=== PATIENT | female | born 1935 | race Caucasian/White ===

== ENCOUNTER 2019-09-21 00:20 | Inpatient (IN) | payer OTHER, MEDICAID ==
[~2019-09-21] VITALS: Ht 162.6 cm; Wt 48.2 kg
[2019-09-21 02:12] LABS: BASO # 0.1 x10^3/uL (0.0-0.2); BASO % 1 % (0-3); EOS # 0.3 x10^3/uL (0.0-0.7); EOS % 2 % (0-3); HEMATOCRIT 37.6 % (36.0-47.0); HEMOGLOBIN 12.3 g/dL (12.0-15.5); LYMPH % 14 % (24-48); MEAN CORPUSCULAR HEMOGLOBIN 30 pg (25-35); MEAN CORPUSCULAR HGB CONC 33 g/dL (31-37); MEAN CORPUSCULAR VOLUME 91 fL (79-100); MONO # 0.7 x10^3/uL (0.0-1.1); MONO % 5 % (0-9); NEUT # 11.2 x10^3/uL (1.8-7.7); NEUT % 78 % (31-73); PLATELET COUNT 438 x10^3/uL (140-400); RED BLOOD COUNT 4.13 x10^6/uL (3.50-5.40); RED CELL DISTRIBUTION WIDTH 16.4 % (11.5-14.5); WHITE BLOOD COUNT 14.3 x10^3/uL (4.0-11.0)
[2019-09-21 02:29] LABS: CALCIUM 8.2 mg/dL (8.5-10.1); CREATININE 0.7 mg/dL (0.6-1.0); GFR 79.9; POTASSIUM 3.2 mmol/L (3.5-5.1)
[2019-09-21 02:35] LABS: ALBUMIN 2.4 g/dL (3.4-5.0); ALBUMIN/GLOBULIN RATIO 0.8 (1.0-1.7); TOTAL BILIRUBIN 0.4 mg/dL (0.2-1.0); TOTAL PROTEIN 5.5 g/dL (6.4-8.2)
--- NOTE | 2019-09-21 02:46 | PHYS DOC ---
Past Medical History Past Medical History: Dementia, Diabetes-Type II, Hypertension Past Surgical History: Other Additional Past Surgical Histo: unknown Smoking Status: Unknown if ever smoked Alcohol Use: None General Adult EDM: Chief Complaint: GI PROBLEM HPI: HPI: Patient is a 83 year old female who presents with complaints of her feeding tube becoming dislodged from her body. [facility] noted that she did not have a PEG tube to do her bolus feedings. Patient is able to eat and drink and take her medications by mouth but receives bolus feedings on evening basis. Patient is not a good historian but denied chest pain, abdominal pain, shortness of breath, headache or any trauma or pain to the extremities. Review of Systems: Review of Systems: Constitutional: Denies fever or chills. [] [] Respiratory: Denies cough or shortness of breath. [] Cardiovascular: Denies chest pain or edema. [] GI: Denies abdominal pain, nausea, vomiting, bloody stools or diarrhea. [] : Denies dysuria. [] Musculoskeletal: Denies back pain or joint pain. [] Integument: Denies rash. [] Neurologic: Denies headache, focal weakness or sensory changes. [] Psychiatric: Denies depression or anxiety. [] Heart Score: Risk Factors: Risk Factors: DM, Current or recent (<one month) smoker, HTN, HLP, family history of CAD, obesity. Risk Scores: Score 0 - 3: 2.5% MACE over next 6 weeks - Discharge Home Score 4 - 6: 20.3% MACE over next 6 weeks - Admit for Clinical Observation Score 7 - 10: 72.7% MACE over next 6 weeks - Early Invasive Strategies Allergies: Allergies: Allergies Coded Allergies Type Severity Reaction Last Updated Verified hydrocodone Allergy Intermediate 09/21/19 Yes metoprolol Allergy Intermediate 09/21/19 Yes tramadol Allergy Intermediate 09/21/19 Yes Physical Exam: PE: Constitutional: Well developed, well nourished, no acute distress, non-toxic appearance. [] HENT: Normocephalic, atraumatic, bilateral external ears normal, oropharynx moist, no oral exudates, nose normal. [] Eyes: PERRLA, EOMI, conjunctiva normal, no discharge. [] Neck: Normal range of motion, no tenderness, supple, no stridor. [] Cardiovascular:H regular rate and rhythm, grade 3/6 systolic murmur, no S3 or S4, no shift of PMI [] Lungs & Thorax: Bilateral breath sounds clear to auscultation, crackles at both bases [] Abdomen: Bowel sounds normal, soft, no tenderness, no masses, no pulsatile masses. A stoma is noted in the epigastrium without any tube [] Skin: Warm, dry, no erythema, no rash. [] Back: No tenderness, no CVA tenderness. [] Extremities: No tenderness, no cyanosis, no clubbing, ROM intact, no edema. [] ] Current Patient Data: Labs: Laboratory Tests Test 09/21/19 02:00 White Blood Count 14.3 x10^3/uL (4.0-11.0) H Red Blood Count 4.13 x10^6/uL (3.50-5.40) Hemoglobin 12.3 g/dL (12.0-15.5) Hematocrit 37.6 % (36.0-47.0) Mean Corpuscular Volume 91 fL (79-100) Mean Corpuscular Hemoglobin 30 pg (25-35) Mean Corpuscular Hemoglobin Concent 33 g/dL (31-37) Red Cell Distribution Width 16.4 % (11.5-14.5) H Platelet Count 438 x10^3/uL (140-400) H Neutrophils (%) (Auto) 78 % (31-73) H Lymphocytes (%) (Auto) 14 % (24-48) L Monocytes (%) (Auto) 5 % (0-9) Eosinophils (%) (Auto) 2 % (0-3) Basophils (%) (Auto) 1 % (0-3) Neutrophils # (Auto) 11.2 x10^3/uL (1.8-7.7) H Lymphocytes # (Auto) 2.0 x10^3/uL (1.0-4.8) Monocytes # (Auto) 0.7 x10^3/uL (0.0-1.1) Eosinophils # (Auto) 0.3 x10^3/uL (0.0-0.7) Basophils # (Auto) 0.1 x10^3/uL (0.0-0.2) Sodium Level 140 mmol/L (136-145) Potassium Level 3.2 mmol/L (3.5-5.1) L Chloride Level 102 mmol/L (98-107) Carbon Dioxide Level 31 mmol/L (21-32) Anion Gap 7 (6-14) Blood Urea Nitrogen 15 mg/dL (7-20) Creatinine 0.7 mg/dL (0.6-1.0) Estimated GFR (Cockcroft-Gault) 79.9 BUN/Creatinine Ratio 21 (6-20) H Glucose Level 101 mg/dL (70-99) H Calcium Level 8.2 mg/dL (8.5-10.1) L Total Bilirubin 0.4 mg/dL (0.2-1.0) Aspartate Amino Transferase (AST) 21 U/L (15-37) Alanine Aminotransferase (ALT) 16 U/L (14-59) Alkaline Phosphatase 84 U/L (46-116) Total Protein 5.5 g/dL (6.4-8.2) L Albumin 2.4 g/dL (3.4-5.0) L Albumin/Globulin Ratio 0.8 (1.0-1.7) L Laboratory Tests 09/21/19 02:00 Laboratory Tests 09/21/19 02:00 Vital Signs: Vital Signs Date Time Temp Pulse Resp B/P (MAP) Pulse Ox O2 Delivery O2 Flow Rate FiO2 09/21/19 00:20 98.1 86 18 130/86 (101) 100 Room Air 98.1 EKG: EKG: [] Radiology/Procedures: Radiology/Procedures: I attempted to place a percutaneous gastrostomy tube #20 Haitian into the ostomy site without success. I will admit the patient for further evaluation by interventional radiology. [] Course & Med Decision Making: Course & Med Decision Making Pertinent Labs and Imaging studies reviewed. (See chart for details) [] Dragon Disclaimer: Dragon Disclaimer: This electronic medical record was generated, in whole or in part, using a voice recognition dictation system. Departure Departure Impression: Primary Impression: PEG (percutaneous endoscopic gastrostomy) adjustment/replacement/removal Disposition: ADMITTED INPATIENT Condition: STABLE Referrals: RUKHSANA BUNN APRN (PCP) Justicifation of Admission Dx: Justifications for Admission: Justification of Admission Dx: Yes Comments: PEG tube malfunction MIRNA CRUZ MD Sep 21, 2019 02:46
[2019-09-21] MEDS ORDERED: IV NORMAL SALINE 1000ML BAG 1,000 ML IV SCH ×2 (02:50→08:00)
[2019-09-21 02:55] LABS: BILIRUBIN,URINE NEGATIVE (NEG); CLARITY,URINE TURBID; COLOR,URINE YELLOW; NITRITE,URINE NEGATIVE (NEG); PROTEIN,URINE NEGATIVE (NEG-TRACE)
[2019-09-21] MEDS ORDERED: ACETAMINOPHEN 325 MG TABLET. PO PRN ×2 (03:00→09:30)
[2019-09-21 03:03] LABS: RBC,URINE OCC /HPF (0-2)
[2019-09-21 03:04] LABS: AMORPHOUS SEDIMENT,UR PRESENT /HPF; BACTERIA,URINE FEW /HPF (0-FEW); SQUAMOUS EPITHELIAL CELL,UR FEW /LPF
[2019-09-21] MEDS ORDERED: ACETAMINOPHEN 325 MG TABLET. PO ONE (03:30)
[2019-09-21 04:20] VITALS: BP 136/65
[2019-09-21] MEDS ORDERED: ATOR20TA58 PO (06:31)
[2019-09-21] MEDS ORDERED: KETO15CR2 TP (06:31)
[2019-09-21] MEDS ORDERED: ASPI-630 PO (06:31)
[2019-09-21] MEDS ORDERED: ALOG25TA PO (06:31)
[2019-09-21] MEDS ORDERED: SENN1TAB99 PO (06:31)
[2019-09-21] MEDS ORDERED: DICL100G24 TP (06:31)
[2019-09-21] MEDS ORDERED: MELA3TAB4 PO (06:31)
[2019-09-21] MEDS ORDERED: DONE5TAB56 PO (06:31)
[2019-09-21] MEDS ORDERED: INSU100I13 SQ (06:31)
[2019-09-21] MEDS ORDERED: SERT50TA8 PO (06:31)
[2019-09-21] MEDS ORDERED: OXYC5CAP PO (06:31)
[2019-09-21] MEDS ORDERED: ACET325T9 PO (06:31)
[2019-09-21] MEDS ORDERED: CHOL500021 PO (06:31)
[2019-09-21] MEDS ORDERED: LATA2.5D3 EACHEYE (06:31)
[2019-09-21] MEDS ORDERED: DOXY100C2 PO (06:31)
[2019-09-21] MEDS ORDERED: INSU100V6 SQ (06:31)
[2019-09-21] MEDS ORDERED: DEXTROSE 50% 25 GM / 50ML DISP.SYRIN. IV PRN (06:45)
[2019-09-21] MEDS ORDERED: ACETAMINOPHEN 325 MG SUPP.RECT. PR PRN (06:45)
[2019-09-21] MEDS ORDERED: ONDANSETRON PF 4 MG/2 ML VIAL. IVP PRN (06:45)
[2019-09-21 07:00] VITALS: BP 111/57
[2019-09-21] MEDS: INSULIN LISPRO 300 UNITS/3 ML VIAL. SQ SCH ×3 (08:00→17:00)
--- NOTE | 2019-09-21 09:00 | NUR ---
0830 Patient bed alarmed; three staff ran to the room and patient was found on the floor. She stated she was not injured and assessment was made by myself and another staff member. Patient assisted back to bed by Beverly Fernandes. [employer] Administrator notified, Dr Christopher notified, family member notified. I did find a very small skin tear that may or may not have been new. Dressing place.
[2019-09-21] MEDS ORDERED: POTASSIUM CHLORIDE 20 MEQ TABLET.ER. PO ONE (09:30)
[2019-09-21] MEDS: POTASSIUM CL 20MEQ D5-0.45NACL 1,000 ML IV SCH (09:30)
[2019-09-21] MEDS: LINAGLIPTIN 5 MG TABLET PO SCH (10:00)
--- NOTE | 2019-09-21 10:30 | PDOC1 ---
History and Physical Date of Admission Date of Admission DATE: 09/21/19 TIME: 10:27 History of Present Illness History of Present Illness Ms Jimenez, is a 83 year old female admit for loss of feeding tube. She lives [facility] noted that she did not have a PEG tube to do her bolus feedings. she can eat and drink and take her medications by mouth but receives bolus feedings on evening basis. She is demented and speaks in colombian and is hard to follow. Family History Family History: Other (unable to determine, dementia) Social History Smoke: No Current Medications Current Medications Current Medications Acetaminophen (Tylenol) 650 mg 1X ONCE PO ; Start 09/21/19 at 03:30; Stop 09/21/19 at 03:31; Status DC Sodium Chloride 1,000 ml @ 75 mls/hr [id number] IV Last administered on 09/21/19at 02:50; Start 09/21/19 at 02:50; Stop 09/21/19 at 09:21; Status DC Acetaminophen (Tylenol) 650 mg PRN Q4HRS PRN PO FEVER > 100.3'F; Start 09/21/19 at 03:00; Stop 09/22/19 at 02:59 Sodium Chloride 1,000 ml @ 50 mls/hr Q20H IV ; Start 09/21/19 at 08:00; Stop 09/21/19 at 09:21; Status DC Insulin Human Lispro (HumaLOG) 0-5 UNITS TIDWMEALS SQ ; Start 09/21/19 at 08:00 Dextrose (Dextrose 50%-Water Syringe) 12.5 gm PRN Q15MIN PRN IV SEE COMMENTS; Start 09/21/19 at 06:45 Acetaminophen (Tylenol Supp) 325 mg PRN Q6HRS PRN [place] MILD PAIN / TEMP > 100.3'F; Start 09/21/19 at 06:45 Ondansetron HCl (Zofran) 4 mg PRN Q6HRS PRN IVP NAUSEA/VOMITING 1ST CHOICE; Start 09/21/19 at 06:45 Potassium Chloride/Dextrose/ Sod Cl 1,000 ml @ 100 mls/hr Q10H IV ; Start 09/21/19 at 09:30 Potassium Chloride (Klor-Con) 20 meq 1X ONCE PO ; Start 09/21/19 at 09:30; Stop 09/21/19 at 09:31; Status DC Acetaminophen (Tylenol) 650 mg PRN Q4HRS PRN PO PAIN; Start 09/21/19 at 09:30 Atorvastatin Calcium (Lipitor) 20 mg HS PO ; Start 09/21/19 at 21:00 Ketoconazole (Nizoral 2% Topical) 1 timmy BID TP ; Start 09/21/19 at 21:00 Latanoprost (Xalatan) 1 drop QHS OU ; Start 09/21/19 at 21:00 Senna/Docusate Sodium (Senna Plus) 1 tab DAILY PO ; Start 09/22/19 at 09:00 Sertraline HCl (Zoloft) 50 mg DAILY PO ; Start 09/22/19 at 09:00 Linagliptin (Tradjenta) 5 mg DAILY PO ; Start 09/21/19 at 10:00 Non-Formulary Medication (Melatonin ) 1 tab QHS PO ; Start 09/21/19 at 21:00; Status UNV Active Scripts Active Reported Sertraline Hcl 50 Mg Tablet 50 Mg PO DAILY Senna-Docusate Sodium Tablet (Sennosides/Docusate Sodium) 1 Each Tablet 1 Tab PO DAILY 20 Days Oxycodone Hcl 5 Mg Capsule 5 Mg PO PRN Q12HR PRN Melatonin 3 Mg Tablet 1 Tab PO QHS Latanoprost 2.5 Ml Drops 1 Drop EACHEYE QHS Lantus Solostar (Insulin Glargine,Hum.rec.anlog) 100 Unit/1 Ml Insuln.pen 5 Unit SQ QHS Ketoconazole 15 Gm Cream..g. 1 Timmy TP BID Humalog (Insulin Lispro) 100 Unit/1 Ml Vial 100 Unit SQ PRN AFTMEALHC PRN Doxycycline Hyclate 100 Mg Capsule 1 Cap PO BID Diclofenac Sodium 100 Gm Gel..gram. 100 Gm TP BID D3-50 (Cholecalciferol (Vitamin D3)) 50,000 Unit Capsule 1 Cap PO WEEKLY 28 Days Atorvastatin Calcium 20 Mg Tablet 20 Mg PO HS Aspirin 81 Mg Tab.chew 2 Tab PO DAILY Aricept (Donepezil Hcl) 5 Mg Tablet 1 Tab PO BID 30 Days Nesina (Alogliptin Benzoate) 25 Mg Tablet 1 Tab PO DAILY 30 Days Tylenol (Acetaminophen) 325 Mg Tablet 650 Mg PO PRN Q4HRS PRN Allergies Allergies: Coded Allergies: hydrocodone (Verified Allergy, Intermediate, 09/21/19) metoprolol (Verified Allergy, Intermediate, 09/21/19) tramadol (Verified Allergy, Intermediate, 09/21/19) ROS Review of System unable, demented Physical Exam General: mild distress, Other (not oriented) HEENT: Atraumatic Lungs: Clear to auscultation Heart: S1S2, other (good pulses, ) Extremities: No cyanosis Skin: No rashes Neuro: Other Psych/Mental Status: Other Vitals Vitals Vital Signs Date Time Temp Pulse Resp B/P (MAP) Pulse Ox O2 Delivery O2 Flow Rate FiO2 09/21/19 07:00 98.4 82 18 111/57 (75) 97 Room Air 98.4 Labs Labs Laboratory Tests Test 09/21/19 02:00 09/21/19 02:35 09/21/19 09:34 White Blood Count 14.3 x10^3/uL (4.0-11.0) Red Blood Count 4.13 x10^6/uL (3.50-5.40) Hemoglobin 12.3 g/dL (12.0-15.5) Hematocrit 37.6 % (36.0-47.0) Mean Corpuscular Volume 91 fL (79-100) Mean Corpuscular Hemoglobin 30 pg (25-35) Mean Corpuscular Hemoglobin Concent 33 g/dL (31-37) Red Cell Distribution Width 16.4 % (11.5-14.5) Platelet Count 438 x10^3/uL (140-400) Neutrophils (%) (Auto) 78 % (31-73) Lymphocytes (%) (Auto) 14 % (24-48) Monocytes (%) (Auto) 5 % (0-9) Eosinophils (%) (Auto) 2 % (0-3) Basophils (%) (Auto) 1 % (0-3) Neutrophils # (Auto) 11.2 x10^3/uL (1.8-7.7) Lymphocytes # (Auto) 2.0 x10^3/uL (1.0-4.8) Monocytes # (Auto) 0.7 x10^3/uL (0.0-1.1) Eosinophils # (Auto) 0.3 x10^3/uL (0.0-0.7) Basophils # (Auto) 0.1 x10^3/uL (0.0-0.2) Sodium Level 140 mmol/L (136-145) Potassium Level 3.2 mmol/L (3.5-5.1) Chloride Level 102 mmol/L (98-107) Carbon Dioxide Level 31 mmol/L (21-32) Anion Gap 7 (6-14) Blood Urea Nitrogen 15 mg/dL (7-20) Creatinine 0.7 mg/dL (0.6-1.0) Estimated GFR (Cockcroft-Gault) 79.9 BUN/Creatinine Ratio 21 (6-20) Glucose Level 101 mg/dL (70-99) Calcium Level 8.2 mg/dL (8.5-10.1) Total Bilirubin 0.4 mg/dL (0.2-1.0) Aspartate Amino Transf (AST/SGOT) 21 U/L (15-37) Alanine Aminotransferase (ALT/SGPT) 16 U/L (14-59) Alkaline Phosphatase 84 U/L (46-116) Total Protein 5.5 g/dL (6.4-8.2) Albumin 2.4 g/dL (3.4-5.0) Albumin/Globulin Ratio 0.8 (1.0-1.7) Urine Collection Type Unknown Urine Color Yellow Urine Clarity Turbid Urine pH 8.0 (<5.0-8.0) Urine Specific [place] 1.015 (1.000-1.030) Urine Protein Negative mg/dL (NEG-TRACE) Urine Glucose (UA) Negative mg/dL (NEG) Urine Ketones (Stick) Trace mg/dL (NEG) Urine Blood Negative (NEG) Urine Nitrite Negative (NEG) Urine Bilirubin Negative (NEG) Urine Urobilinogen Dipstick 1.0 mg/dL (0.2 mg/dL) Urine Leukocyte Esterase Small (NEG) Urine RBC Occ /HPF (0-2) Urine WBC 1-4 /HPF (0-4) Urine Squamous Epithelial Cells Few /LPF Urine Amorphous Sediment Present /HPF Urine Bacteria Few /HPF (0-FEW) Urine Mucus Slight /LPF Glucose (Fingerstick) 111 mg/dL (70-99) Laboratory Tests Test 09/21/19 02:00 09/21/19 02:35 09/21/19 09:34 White Blood Count 14.3 x10^3/uL (4.0-11.0) Red Blood Count 4.13 x10^6/uL (3.50-5.40) Hemoglobin 12.3 g/dL (12.0-15.5) Hematocrit 37.6 % (36.0-47.0) Mean Corpuscular Volume 91 fL (79-100) Mean Corpuscular Hemoglobin 30 pg (25-35) Mean Corpuscular Hemoglobin Concent 33 g/dL (31-37) Red Cell Distribution Width 16.4 % (11.5-14.5) Platelet Count 438 x10^3/uL (140-400) Neutrophils (%) (Auto) 78 % (31-73) Lymphocytes (%) (Auto) 14 % (24-48) Monocytes (%) (Auto) 5 % (0-9) Eosinophils (%) (Auto) 2 % (0-3) Basophils (%) (Auto) 1 % (0-3) Neutrophils # (Auto) 11.2 x10^3/uL (1.8-7.7) Lymphocytes # (Auto) 2.0 x10^3/uL (1.0-4.8) Monocytes # (Auto) 0.7 x10^3/uL (0.0-1.1) Eosinophils # (Auto) 0.3 x10^3/uL (0.0-0.7) Basophils # (Auto) 0.1 x10^3/uL (0.0-0.2) Sodium Level 140 mmol/L (136-145) Potassium Level 3.2 mmol/L (3.5-5.1) Chloride Level 102 mmol/L (98-107) Carbon Dioxide Level 31 mmol/L (21-32) Anion Gap 7 (6-14) Blood Urea Nitrogen 15 mg/dL (7-20) Creatinine 0.7 mg/dL (0.6-1.0) Estimated GFR (Cockcroft-Gault) 79.9 BUN/Creatinine Ratio 21 (6-20) Glucose Level 101 mg/dL (70-99) Calcium Level 8.2 mg/dL (8.5-10.1) Total Bilirubin 0.4 mg/dL (0.2-1.0) Aspartate Amino Transf (AST/SGOT) 21 U/L (15-37) Alanine Aminotransferase (ALT/SGPT) 16 U/L (14-59) Alkaline Phosphatase 84 U/L (46-116) Total Protein 5.5 g/dL (6.4-8.2) Albumin 2.4 g/dL (3.4-5.0) Albumin/Globulin Ratio 0.8 (1.0-1.7) Urine Collection Type Unknown Urine Color Yellow Urine Clarity Turbid Urine pH 8.0 (<5.0-8.0) Urine Specific [place] 1.015 (1.000-1.030) Urine Protein Negative mg/dL (NEG-TRACE) Urine Glucose (UA) Negative mg/dL (NEG) Urine Ketones (Stick) Trace mg/dL (NEG) Urine Blood Negative (NEG) Urine Nitrite Negative (NEG) Urine Bilirubin Negative (NEG) Urine Urobilinogen Dipstick 1.0 mg/dL (0.2 mg/dL) Urine Leukocyte Esterase Small (NEG) Urine RBC Occ /HPF (0-2) Urine WBC 1-4 /HPF (0-4) Urine Squamous Epithelial Cells Few /LPF Urine Amorphous Sediment Present /HPF Urine Bacteria Few /HPF (0-FEW) Urine Mucus Slight /LPF Glucose (Fingerstick) 111 mg/dL (70-99) VTE Prophylaxis Ordered VTE Prophylaxis Devices: No VTE Pharmacological Prophylaxi: No Assessment/Plan Assessment/Plan loss of peg tube severe malnutrition dementia, near hospice status, lives in shelter leukocytosis, NOS hypokalemia plan to replace tube then DC Justicifation of Admission Dx: Justifications for Admission: Justification of Admission Dx: Yes JÚNIOR WHALEN MD Sep 21, 2019 10:30
[2019-09-21 11:00] VITALS: BP 97/89
--- NOTE | 2019-09-21 11:55 | PDOC2 ---
CONSULT Date of Consult Date of Consult DATE: 09/21/19 TIME: 11:46 Reason for Consult Reason for Consult: PEG tube displacement History of Present Illness Reason for Visit: This is an 83-year-old female, who is transferred here from a skilled nursing with the history that her PEG tube fell out or was pulled out inadvertently. We have not seen her before but the history is she had a significant severe illness like pneumonia for example requiring gastrostomy tube placement for nutritional support and medications. I called the family to review this. It sounds like she was at [facility] although I do not have those records. She apparently began to improve and was able to start taking some nutrition orally during the day but it was not apparently sufficient and so she was getting some bolus feedings at night as well. The patient is unable to tell us why the gastrostomy tube fell out but it had been out long enough that when she arrived here at the hospital a replacement tube was not able to be placed at the bedside . She was admitted for fluids and observation. Past Medical History Cardiovascular: HTN, Hyperlipidemia Pulmonary: Pneumonia CENTRAL NERVOUS SYSTEM: Dementia Psych: Anxiety Endocrine: Diabetes Past Surgical History Past Surgical History: Other (PEG) Family History Family History: Other (unable to determine, dementia) Social History No Current Medications Current Medications Current Medications Acetaminophen (Tylenol) 650 mg 1X ONCE PO ; Start 09/21/19 at 03:30; Stop 09/21/19 at 03:31; Status DC Sodium Chloride 1,000 ml @ 75 mls/hr [id number] IV Last administered on 09/21/19at 02:50; Start 09/21/19 at 02:50; Stop 09/21/19 at 09:21; Status DC Acetaminophen (Tylenol) 650 mg PRN Q4HRS PRN PO FEVER > 100.3'F; Start 09/21/19 at 03:00; Stop 09/22/19 at 02:59 Sodium Chloride 1,000 ml @ 50 mls/hr Q20H IV ; Start 09/21/19 at 08:00; Stop 09/21/19 at 09:21; Status DC Insulin Human Lispro (HumaLOG) 0-5 UNITS TIDWMEALS SQ ; Start 09/21/19 at 08:00 Dextrose (Dextrose 50%-Water Syringe) 12.5 gm PRN Q15MIN PRN IV SEE COMMENTS; Start 09/21/19 at 06:45 Acetaminophen (Tylenol Supp) 325 mg PRN Q6HRS PRN MS MILD PAIN / TEMP > 100.3'F; Start 09/21/19 at 06:45 Ondansetron HCl (Zofran) 4 mg PRN Q6HRS PRN IVP NAUSEA/VOMITING 1ST CHOICE; Start 09/21/19 at 06:45 Potassium Chloride/Dextrose/ Sod Cl 1,000 ml @ 100 mls/hr Q10H IV ; Start 09/21/19 at 09:30 Potassium Chloride (Klor-Con) 20 meq 1X ONCE PO ; Start 09/21/19 at 09:30; Stop 09/21/19 at 09:31; Status DC Acetaminophen (Tylenol) 650 mg PRN Q4HRS PRN PO PAIN; Start 09/21/19 at 09:30 Atorvastatin Calcium (Lipitor) 20 mg HS PO ; Start 09/21/19 at 21:00 Ketoconazole (Nizoral 2% Topical) 1 timmy BID TP ; Start 09/21/19 at 21:00 Latanoprost (Xalatan) 1 drop QHS OU ; Start 09/21/19 at 21:00 Senna/Docusate Sodium (Senna Plus) 1 tab DAILY PO ; Start 09/22/19 at 09:00 Sertraline HCl (Zoloft) 50 mg DAILY PO ; Start 09/22/19 at 09:00 Linagliptin (Tradjenta) 5 mg DAILY PO ; Start 09/21/19 at 10:00 Non-Formulary Medication (Melatonin ) 1 tab QHS PO ; Start 09/21/19 at 21:00; Status UNV Active Scripts Active Reported Sertraline Hcl 50 Mg Tablet 50 Mg PO DAILY Senna-Docusate Sodium Tablet (Sennosides/Docusate Sodium) 1 Each Tablet 1 Tab PO DAILY 20 Days Oxycodone Hcl 5 Mg Capsule 5 Mg PO PRN Q12HR PRN Melatonin 3 Mg Tablet 1 Tab PO QHS Latanoprost 2.5 Ml Drops 1 Drop EACHEYE QHS Lantus Solostar (Insulin Glargine,Hum.rec.anlog) 100 Unit/1 Ml Insuln.pen 5 Unit SQ QHS Ketoconazole 15 Gm Cream..g. 1 Timmy TP BID Humalog (Insulin Lispro) 100 Unit/1 Ml Vial 100 Unit SQ PRN AFTMEALHC PRN Doxycycline Hyclate 100 Mg Capsule 1 Cap PO BID Diclofenac Sodium 100 Gm Gel..gram. 100 Gm TP BID D3-50 (Cholecalciferol (Vitamin D3)) 50,000 Unit Capsule 1 Cap PO WEEKLY 28 Days Atorvastatin Calcium 20 Mg Tablet 20 Mg PO HS Aspirin 81 Mg Tab.chew 2 Tab PO DAILY Aricept (Donepezil Hcl) 5 Mg Tablet 1 Tab PO BID 30 Days Nesina (Alogliptin Benzoate) 25 Mg Tablet 1 Tab PO DAILY 30 Days Tylenol (Acetaminophen) 325 Mg Tablet 650 Mg PO PRN Q4HRS PRN Allergies Allergies: Coded Allergies: hydrocodone (Verified Allergy, Intermediate, 09/21/19) metoprolol (Verified Allergy, Intermediate, 09/21/19) tramadol (Verified Allergy, Intermediate, 09/21/19) Physical Exam General: Cooperative, Other (Confused) HEENT: Atraumatic, PERRLA Lungs: Clear to auscultation Heart: Regular rate, Normal S1, Normal S2 Abdomen: Normal bowel sounds, Soft, No tenderness, No hepatosplenomegaly, Other (Closed PEG site in the mid abdomen) Neuro: Normal speech Psych/Mental Status: Other (Confused, likely dementia) Vitals VITALS Vital Signs Date Time Temp Pulse Resp B/P (MAP) Pulse Ox O2 Delivery O2 Flow Rate FiO2 09/21/19 11:00 97.5 74 18 97/89 (92) 99 Room Air 97.5 Labs Labs Laboratory Tests Test 09/21/19 02:00 09/21/19 02:35 09/21/19 09:34 09/21/19 11:37 White Blood Count 14.3 x10^3/uL (4.0-11.0) Red Blood Count 4.13 x10^6/uL (3.50-5.40) Hemoglobin 12.3 g/dL (12.0-15.5) Hematocrit 37.6 % (36.0-47.0) Mean Corpuscular Volume 91 fL (79-100) Mean Corpuscular Hemoglobin 30 pg (25-35) Mean Corpuscular Hemoglobin Concent 33 g/dL (31-37) Red Cell Distribution Width 16.4 % (11.5-14.5) Platelet Count 438 x10^3/uL (140-400) Neutrophils (%) (Auto) 78 % (31-73) Lymphocytes (%) (Auto) 14 % (24-48) Monocytes (%) (Auto) 5 % (0-9) Eosinophils (%) (Auto) 2 % (0-3) Basophils (%) (Auto) 1 % (0-3) Neutrophils # (Auto) 11.2 x10^3/uL (1.8-7.7) Lymphocytes # (Auto) 2.0 x10^3/uL (1.0-4.8) Monocytes # (Auto) 0.7 x10^3/uL (0.0-1.1) Eosinophils # (Auto) 0.3 x10^3/uL (0.0-0.7) Basophils # (Auto) 0.1 x10^3/uL (0.0-0.2) Sodium Level 140 mmol/L (136-145) Potassium Level 3.2 mmol/L (3.5-5.1) Chloride Level 102 mmol/L (98-107) Carbon Dioxide Level 31 mmol/L (21-32) Anion Gap 7 (6-14) Blood Urea Nitrogen 15 mg/dL (7-20) Creatinine 0.7 mg/dL (0.6-1.0) Estimated GFR (Cockcroft-Gault) 79.9 BUN/Creatinine Ratio 21 (6-20) Glucose Level 101 mg/dL (70-99) Calcium Level 8.2 mg/dL (8.5-10.1) Total Bilirubin 0.4 mg/dL (0.2-1.0) Aspartate Amino Transf (AST/SGOT) 21 U/L (15-37) Alanine Aminotransferase (ALT/SGPT) 16 U/L (14-59) Alkaline Phosphatase 84 U/L (46-116) Total Protein 5.5 g/dL (6.4-8.2) Albumin 2.4 g/dL (3.4-5.0) Albumin/Globulin Ratio 0.8 (1.0-1.7) Urine Collection Type Unknown Urine Color Yellow Urine Clarity Turbid Urine pH 8.0 (<5.0-8.0) Urine Specific [place] 1.015 (1.000-1.030) Urine Protein Negative mg/dL (NEG-TRACE) Urine Glucose (UA) Negative mg/dL (NEG) Urine Ketones (Stick) Trace mg/dL (NEG) Urine Blood Negative (NEG) Urine Nitrite Negative (NEG) Urine Bilirubin Negative (NEG) Urine Urobilinogen Dipstick 1.0 mg/dL (0.2 mg/dL) Urine Leukocyte Esterase Small (NEG) Urine RBC Occ /HPF (0-2) Urine WBC 1-4 /HPF (0-4) Urine Squamous Epithelial Cells Few /LPF Urine Amorphous Sediment Present /HPF Urine Bacteria Few /HPF (0-FEW) Urine Mucus Slight /LPF Glucose (Fingerstick) 111 mg/dL (70-99) 106 mg/dL (70-99) Laboratory Tests Test 09/21/19 02:00 09/21/19 02:35 09/21/19 09:34 09/21/19 11:37 White Blood Count 14.3 x10^3/uL (4.0-11.0) Red Blood Count 4.13 x10^6/uL (3.50-5.40) Hemoglobin 12.3 g/dL (12.0-15.5) Hematocrit 37.6 % (36.0-47.0) Mean Corpuscular Volume 91 fL (79-100) Mean Corpuscular Hemoglobin 30 pg (25-35) Mean Corpuscular Hemoglobin Concent 33 g/dL (31-37) Red Cell Distribution Width 16.4 % (11.5-14.5) Platelet Count 438 x10^3/uL (140-400) Neutrophils (%) (Auto) 78 % (31-73) Lymphocytes (%) (Auto) 14 % (24-48) Monocytes (%) (Auto) 5 % (0-9) Eosinophils (%) (Auto) 2 % (0-3) Basophils (%) (Auto) 1 % (0-3) Neutrophils # (Auto) 11.2 x10^3/uL (1.8-7.7) Lymphocytes # (Auto) 2.0 x10^3/uL (1.0-4.8) Monocytes # (Auto) 0.7 x10^3/uL (0.0-1.1) Eosinophils # (Auto) 0.3 x10^3/uL (0.0-0.7) Basophils # (Auto) 0.1 x10^3/uL (0.0-0.2) Sodium Level 140 mmol/L (136-145) Potassium Level 3.2 mmol/L (3.5-5.1) Chloride Level 102 mmol/L (98-107) Carbon Dioxide Level 31 mmol/L (21-32) Anion Gap 7 (6-14) Blood Urea Nitrogen 15 mg/dL (7-20) Creatinine 0.7 mg/dL (0.6-1.0) Estimated GFR (Cockcroft-Gault) 79.9 BUN/Creatinine Ratio 21 (6-20) Glucose Level 101 mg/dL (70-99) Calcium Level 8.2 mg/dL (8.5-10.1) Total Bilirubin 0.4 mg/dL (0.2-1.0) Aspartate Amino Transf (AST/SGOT) 21 U/L (15-37) Alanine Aminotransferase (ALT/SGPT) 16 U/L (14-59) Alkaline Phosphatase 84 U/L (46-116) Total Protein 5.5 g/dL (6.4-8.2) Albumin 2.4 g/dL (3.4-5.0) Albumin/Globulin Ratio 0.8 (1.0-1.7) Urine Collection Type Unknown Urine Color Yellow Urine Clarity Turbid Urine pH 8.0 (<5.0-8.0) Urine Specific [place] 1.015 (1.000-1.030) Urine Protein Negative mg/dL (NEG-TRACE) Urine Glucose (UA) Negative mg/dL (NEG) Urine Ketones (Stick) Trace mg/dL (NEG) Urine Blood Negative (NEG) Urine Nitrite Negative (NEG) Urine Bilirubin Negative (NEG) Urine Urobilinogen Dipstick 1.0 mg/dL (0.2 mg/dL) Urine Leukocyte Esterase Small (NEG) Urine RBC Occ /HPF (0-2) Urine WBC 1-4 /HPF (0-4) Urine Squamous Epithelial Cells Few /LPF Urine Amorphous Sediment Present /HPF Urine Bacteria Few /HPF (0-FEW) Urine Mucus Slight /LPF Glucose (Fingerstick) 111 mg/dL (70-99) 106 mg/dL (70-99) Assessment/Plan Assessment/Plan Displacement of PEG tube. The circumstances of this are unclear. More importantly she is only using the PEG tube for bolus feeding at night. It was p laced before with an acute illness. I am not sure the details but it sounds like a pneumonia. However she is improved over the her recovery. The question now is since the tube is been displaced will she be able to tolerate p.o. intake for nutrition and medications alone or will she need a replacement gastrostomy tube I called and discussed this issue with her family. They have limited knowledge of what happened to her but did state that she was doing better when she had support of her p.o. intake by nursing assistants. Plan: We will try to obtain additional records if we can We will have speech pathology see her tomorrow and assess whether she continues to have any oropharyngeal dysphasia We will observe her intake of meds and diet while here and then review all of this and make a decision about replacing the PEG tube or proceeding without DEVANG ARCHIBALD MD Sep 21, 2019 11:54
[2019-09-21 15:00] VITALS: BP_SYST 144; BP_SYST 97; BP_DIAS 79; BP_DIAS 89
[2019-09-21] MEDS: MORPHINE SULFATE 2 MG/ML VIAL. IV PRN (15:27)
[2019-09-21 19:00] VITALS: BP 148/76
[2019-09-21] MEDS ORDERED: NON FORMULARY ITEM (Melatonin 1 TAB) PO SCH (21:00)
[2019-09-21] MEDS: ATORVASTATIN CALCIUM 20 MG TABLET PO SCH (21:00)
[2019-09-21] MEDS: LATANOPROST 0.005% OPHTH SOLUTION 2.5ML BOTTLE. OU SCH (21:00)
[2019-09-21] MEDS: KETOCONAZOLE 2% TOPICAL CREAM 15GM TUBE. TP SCH (21:00)
[2019-09-21 23:00] VITALS: BP 136/68
[2019-09-22] MEDS: POTASSIUM CL 20MEQ D5-0.45NACL 1,000 ML IV SCH ×3 (03:10→14:51)
--- NOTE | 2019-09-22 07:41 | NUR ---
Patient is refusing to have fluids ordered. Will continue to monitor.
[2019-09-22] MEDS: INSULIN LISPRO 300 UNITS/3 ML VIAL. SQ SCH ×3 (08:00→16:55)
[2019-09-22] MEDS: SERTRALINE 50 MG TABLET. PO SCH ×2 (09:00→09:27)
[2019-09-22] MEDS: SENNOSIDES/DOCUSATE 8.6/50MG TABLET. PO SCH ×2 (09:00→09:27)
[2019-09-22] MEDS: LINAGLIPTIN 5 MG TABLET PO SCH ×2 (09:00→09:27)
[2019-09-22] MEDS: KETOCONAZOLE 2% TOPICAL CREAM 15GM TUBE. TP SCH ×3 (09:00→21:00)
--- NOTE | 2019-09-22 09:52 | NUR ---
SW following. 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 SW had consult for possible hospice. Dr. Melchor will reach out to family today to discuss. Pt combative and confused. SW will continue to follow.
--- NOTE | 2019-09-22 10:48 | PDOC ---
Date of Service: DATE: 09/22/19 TIME: 10:44 Subjective: Subjective: No meaningful information from her. Objective: Objective: D/w nurse - has been agitated, communication difficult - trying to get up, got Ativan. Vital Signs: Vital Signs Date Time Temp Pulse Resp B/P (MAP) Pulse Ox O2 Delivery O2 Flow Rate FiO2 09/22/19 03:20 20 09/21/19 23:00 98.9 75 95 Room Air 98.9 Labs: Laboratory Tests Test 09/21/19 11:37 09/21/19 16:54 Glucose (Fingerstick) 106 mg/dL 93 mg/dL URINE CULTURE Final Final No Growth on 09/22/19 at 0915 PE: GEN: NAD, in recliner LUNGS: poor effort, diminished HEART: RRR ABD: non-tender, old PEG site in upper abdomen NEURO/PSYCH: awake, difficult to understand A/P: PEG displacement -- Agitation/language barrier issues today. Await [employer] eval. Justicifation of Admission Dx: Justifications for Admission: Justification of Admission Dx: Yes ARTUR CALDERON Sep 22, 2019 10:48
[2019-09-22 11:00] VITALS: BP 109/45
--- NOTE | 2019-09-22 11:26 | NUR ---
Patient is combative and refused ENRIQUE/Bud Addendum: 09/22/19 at 1127 by STEVEN CAAL RN RN Amended: Links added.
--- NOTE | 2019-09-22 11:45 | NUR ---
Wound Care Wound Type/Assessment: see wound assessment. patient assessed with [facility], see her progress note. 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 patient also has a skin tear to the right arm, the wound was cleaned measured, pictured and redressed. Treatment Recommendations/Plan: Recommendations of packing the sacrum wound with Aquacel Ag with a foam dressing, change every other day. patients right arm- Xeroform gauze with a foam dressing, change every 3-4 days. Offloading surface/device: patient transferred to a P500 bed at this time. ordered a wedge to assist with turning every 2 hours, patient turned to the right side at this time. Recommended Referrals/Tests: LETITIA [facility] to order an MRI for the sacrum wound. Patient assessed from head to toe and no other wounds noted at this time. Notified RUPINDER Rae about the POC. wound care will continue to f/u for changes.
[2019-09-22 15:00] VITALS: BP 110/48
--- NOTE | 2019-09-22 15:36 | PDOC2 ---
CONSULT Date of Consult Date of Consult DATE: 09/22/19 TIME: 12:20 Reason for Consult Reason for Consult: Stage 4 sacral wound Referring Physician Referring Physician: Dr. hylton Source Source: Chart review History of Present Illness Reason for Visit: Patient admitted to [facility] for a dislodged PEG tube. Prior to admission patient had been admitted to [facility] and had only been at the facility for 3 to 4 days. Prior to admission at [facility] patient was at [facility] for custodial services. Sacral wound was noted upon admission to [facility] and documented at its a stage IV. Past Medical History Cardiovascular: HTN, Hyperlipidemia Pulmonary: Pneumonia CENTRAL NERVOUS SYSTEM: Dementia Psych: Anxiety Endocrine: Diabetes Past Surgical History Past Surgical History: Other Family History Family History: Other (unable to determine, dementia) Social History No ALCOHOL: none Current Medications Current Medications Current Medications Acetaminophen (Tylenol) 650 mg 1X ONCE PO ; Start 09/21/19 at 03:30; Stop 09/21/19 at 03:31; Status DC Sodium Chloride 1,000 ml @ 75 mls/hr [id number] IV Last administered on 09/21/19at 02:50; Start 09/21/19 at 02:50; Stop 09/21/19 at 09:21; Status DC Acetaminophen (Tylenol) 650 mg PRN Q4HRS PRN PO FEVER > 100.3'F; Start 09/21/19 at 03:00; Stop 09/22/19 at 02:59; Status DC Sodium Chloride 1,000 ml @ 50 mls/hr Q20H IV ; Start 09/21/19 at 08:00; Stop 09/21/19 at 09:21; Status DC Insulin Human Lispro (HumaLOG) 0-5 UNITS TIDWMEALS SQ ; Start 09/21/19 at 08:00 Dextrose (Dextrose 50%-Water Syringe) 12.5 gm PRN Q15MIN PRN IV SEE COMMENTS; Start 09/21/19 at 06:45 Acetaminophen (Tylenol Supp) 325 mg PRN Q6HRS PRN ID MILD PAIN / TEMP > 100.3'F; Start 09/21/19 at 06:45 Ondansetron HCl (Zofran) 4 mg PRN Q6HRS PRN IVP NAUSEA/VOMITING 1ST CHOICE; Start 09/21/19 at 06:45 Potassium Chloride/Dextrose/ Sod Cl 1,000 ml @ 100 mls/hr Q10H IV Last administered on 09/22/19at 03:10; Start 09/21/19 at 09:30 Potassium Chloride (Klor-Con) 20 meq 1X ONCE PO ; Start 09/21/19 at 09:30; Stop 09/21/19 at 09:31; Status DC Acetaminophen (Tylenol) 650 mg PRN Q4HRS PRN PO PAIN; Start 09/21/19 at 09:30 Atorvastatin Calcium (Lipitor) 20 mg HS PO ; Start 09/21/19 at 21:00 Ketoconazole (Nizoral 2% Topical) 1 timmy BID TP ; Start 09/21/19 at 21:00 Latanoprost (Xalatan) 1 drop QHS OU ; Start 09/21/19 at 21:00 Senna/Docusate Sodium (Senna Plus) 1 tab DAILY PO ; Start 09/22/19 at 09:00 Sertraline HCl (Zoloft) 50 mg DAILY PO ; Start 09/22/19 at 09:00 Linagliptin (Tradjenta) 5 mg DAILY PO ; Start 09/21/19 at 10:00 Non-Formulary Medication (Melatonin ) 1 tab QHS PO ; Start 09/21/19 at 21:00; Status UNV Lorazepam (Ativan Inj) 1 mg 1X ONCE IVP Last administered on 09/21/19at 15:31; Start 09/21/19 at 15:00; Stop 09/21/19 at 15:01; Status DC Morphine Sulfate (Morphine Sulfate) 2 mg PRN Q2HR PRN IV PAIN Last administered on 09/21/19at 15:27; Start 09/21/19 at 15:00 Lorazepam (Ativan Inj) 2 mg 1X ONCE IVP Last administered on 09/22/19at 09:28; Start 09/22/19 at 09:00; Stop 09/22/19 at 09:01; Status DC Active Scripts Active Reported Sertraline Hcl 50 Mg Tablet 50 Mg PO DAILY Senna-Docusate Sodium Tablet (Sennosides/Docusate Sodium) 1 Each Tablet 1 Tab PO DAILY 20 Days Oxycodone Hcl 5 Mg Capsule 5 Mg PO PRN Q12HR PRN Melatonin 3 Mg Tablet 1 Tab PO QHS Latanoprost 2.5 Ml Drops 1 Drop EACHEYE QHS Lantus Solostar (Insulin Glargine,Hum.rec.anlog) 100 Unit/1 Ml Insuln.pen 5 Unit SQ QHS Ketoconazole 15 Gm Cream..g. 1 Timmy TP BID Humalog (Insulin Lispro) 100 Unit/1 Ml Vial 100 Unit SQ PRN AFTMEALHC PRN Doxycycline Hyclate 100 Mg Capsule 1 Cap PO BID Diclofenac Sodium 100 Gm Gel..gram. 100 Gm TP BID D3-50 (Cholecalciferol (Vitamin D3)) 50,000 Unit Capsule 1 Cap PO WEEKLY 28 Days Atorvastatin Calcium 20 Mg Tablet 20 Mg PO HS Aspirin 81 Mg Tab.chew 2 Tab PO DAILY Aricept (Donepezil Hcl) 5 Mg Tablet 1 Tab PO BID 30 Days Nesina (Alogliptin Benzoate) 25 Mg Tablet 1 Tab PO DAILY 30 Days Tylenol (Acetaminophen) 325 Mg Tablet 650 Mg PO PRN Q4HRS PRN Allergies Allergies: Coded Allergies: hydrocodone (Verified Allergy, Intermediate, 09/21/19) metoprolol (Verified Allergy, Intermediate, 09/21/19) tramadol (Verified Allergy, Intermediate, 09/21/19) ROS General: No: Chills, Fatigue, Appetite PSYCHOLOGICAL ROS: No: Anxiety, Depression Respiratory: No: Cough, Shortness of breath Cardiovascular: No Chest Pain Gastrointestinal: No Nausea, No Vomiting, No Diarrhea Neurological: No Behavorial Changes Physical Exam General: Alert, Cooperative, No acute distress Abdomen: Soft, No tenderness Extremities: No clubbing, No cyanosis, No edema Skin: No rashes, Other (Sacral region with a 3.4 x 4.3 x 2 cm open ulceration. There is undermining with a max of 3.8 that goes from 8:00 to 3:00. Wound bed is 20% slough, 80% granulation. There is bone palpable with minimal overlying slough centrally. There is no surrounding erythema or edema. There is moderate serosanguineous drainage and no odor following cleansing.) Vitals VITALS Vital Signs Date Time Temp Pulse Resp B/P (MAP) Pulse Ox O2 Delivery O2 Flow Rate FiO2 09/22/19 11:00 73 16 109/45 (66) 96 Room Air 09/21/19 23:00 98.9 98.9 Labs Labs Laboratory Tests Test 09/21/19 02:00 09/21/19 02:35 09/21/19 09:34 09/21/19 11:37 White Blood Count 14.3 x10^3/uL (4.0-11.0) Red Blood Count 4.13 x10^6/uL (3.50-5.40) Hemoglobin 12.3 g/dL (12.0-15.5) Hematocrit 37.6 % (36.0-47.0) Mean Corpuscular Volume 91 fL (79-100) Mean Corpuscular Hemoglobin 30 pg (25-35) Mean Corpuscular Hemoglobin Concent 33 g/dL (31-37) Red Cell Distribution Width 16.4 % (11.5-14.5) Platelet Count 438 x10^3/uL (140-400) Neutrophils (%) (Auto) 78 % (31-73) Lymphocytes (%) (Auto) 14 % (24-48) Monocytes (%) (Auto) 5 % (0-9) Eosinophils (%) (Auto) 2 % (0-3) Basophils (%) (Auto) 1 % (0-3) Neutrophils # (Auto) 11.2 x10^3/uL (1.8-7.7) Lymphocytes # (Auto) 2.0 x10^3/uL (1.0-4.8) Monocytes # (Auto) 0.7 x10^3/uL (0.0-1.1) Eosinophils # (Auto) 0.3 x10^3/uL (0.0-0.7) Basophils # (Auto) 0.1 x10^3/uL (0.0-0.2) Sodium Level 140 mmol/L (136-145) Potassium Level 3.2 mmol/L (3.5-5.1) Chloride Level 102 mmol/L (98-107) Carbon Dioxide Level 31 mmol/L (21-32) Anion Gap 7 (6-14) Blood Urea Nitrogen 15 mg/dL (7-20) Creatinine 0.7 mg/dL (0.6-1.0) Estimated GFR (Cockcroft-Gault) 79.9 BUN/Creatinine Ratio 21 (6-20) Glucose Level 101 mg/dL (70-99) Calcium Level 8.2 mg/dL (8.5-10.1) Total Bilirubin 0.4 mg/dL (0.2-1.0) Aspartate Amino Transf (AST/SGOT) 21 U/L (15-37) Alanine Aminotransferase (ALT/SGPT) 16 U/L (14-59) Alkaline Phosphatase 84 U/L (46-116) Total Protein 5.5 g/dL (6.4-8.2) Albumin 2.4 g/dL (3.4-5.0) Albumin/Globulin Ratio 0.8 (1.0-1.7) Urine Collection Type Unknown Urine Color Yellow Urine Clarity Turbid Urine pH 8.0 (<5.0-8.0) Urine Specific [place] 1.015 (1.000-1.030) Urine Protein Negative mg/dL (NEG-TRACE) Urine Glucose (UA) Negative mg/dL (NEG) Urine Ketones (Stick) Trace mg/dL (NEG) Urine Blood Negative (NEG) Urine Nitrite Negative (NEG) Urine Bilirubin Negative (NEG) Urine Urobilinogen Dipstick 1.0 mg/dL (0.2 mg/dL) Urine Leukocyte Esterase Small (NEG) Urine RBC Occ /HPF (0-2) Urine WBC 1-4 /HPF (0-4) Urine Squamous Epithelial Cells Few /LPF Urine Amorphous Sediment Present /HPF Urine Bacteria Few /HPF (0-FEW) Urine Mucus Slight /LPF Glucose (Fingerstick) 111 mg/dL (70-99) 106 mg/dL (70-99) Test 09/21/19 16:54 Glucose (Fingerstick) 93 mg/dL (70-99) Laboratory Tests Test 09/21/19 16:54 Glucose (Fingerstick) 93 mg/dL (70-99) Assessment/Plan Assessment/Plan Stage IV sacral pressure ulcer -Cleanse and pat dry. Apply skin prep to surrounding tissue. Apply Aquasol AG to wound bed and cover with foam adhesive. Change every other day or as needed if dressing loose or saturated. -Obtain MRI to rule out underlying osteomyelitis with bone exposed. Creatinine elevated so unable to do with contrast. If negative institute Veriflow, negative pressure wound therapy. -Patient on alternating pressure mattress -Patient with foam wedge in room to encourage side to side lying positions -Dietary consulting to ensure patient with adequate protein intake for optimal wound healing RUKHSANA BUNN C T TECH Sep 22, 2019 15:36
--- NOTE | 2019-09-22 18:03 | PDOC ---
PROGRESS NOTES Date of Service: DATE: 09/22/19 TIME: 18:01 Chief Complaint Chief Complaint Loss of PEG tube History of Present Illness History of Present Illness Per nursing staff, patient is reportedly capable of swallowing. Patient has been aggressive and difficult on the floors. Further history unable to obtain due to language barrier. Vitals Vitals Vital Signs Date Time Temp Pulse Resp B/P (MAP) Pulse Ox O2 Delivery O2 Flow Rate FiO2 09/22/19 15:00 70 16 110/48 (68) 96 Room Air 09/21/19 23:00 98.9 98.9 Physical Exam General: Alert, Cooperative, No acute distress Heart: Regular rate, Normal S1, Normal S2 Abdomen: Soft, No tenderness Extremities: No clubbing, No cyanosis, No edema Skin: No rashes, Other (Sacral region with a 3.4 x 4.3 x 2 cm open ulceration. There is undermining with a max of 3.8 that goes from 8:00 to 3:00. Wound bed is 20% slough, 80% granulation. There is bone palpable with minimal overlying slough centrally. There is no surrounding erythema or edema. There is moderate serosanguineous drainage and no odor following cleansing.) Labs LABS Laboratory Tests Test 09/22/19 16:40 Glucose (Fingerstick) 98 mg/dL (70-99) Review of Systems Review of Systems Unable to obtain due to language barrier. Assessment and Plan Assessmemt and Plan 1) Loss of peg tube 2) Severe malnutrition 3) Dementia - near hospice status, [facility] 4) Leukocytosis, NOS 5) Hypokalemia 6) Stage IV sacral ulcer Plan: Consult surgery for possible tube replacement, if patient not passing swallow study. If she does pass ST eval, may obviate the need for PEG tube. Consult to wound care for sacral ulcer. Will discuss with son possibly pursuing hospice. Comment Review of Relevant I have reviewed the following items pawan (where applicable) has been applied. Labs Laboratory Tests Test 09/21/19 02:00 09/21/19 02:35 09/21/19 09:34 09/21/19 11:37 White Blood Count 14.3 x10^3/uL (4.0-11.0) Red Blood Count 4.13 x10^6/uL (3.50-5.40) Hemoglobin 12.3 g/dL (12.0-15.5) Hematocrit 37.6 % (36.0-47.0) Mean Corpuscular Volume 91 fL (79-100) Mean Corpuscular Hemoglobin 30 pg (25-35) Mean Corpuscular Hemoglobin Concent 33 g/dL (31-37) Red Cell Distribution Width 16.4 % (11.5-14.5) Platelet Count 438 x10^3/uL (140-400) Neutrophils (%) (Auto) 78 % (31-73) Lymphocytes (%) (Auto) 14 % (24-48) Monocytes (%) (Auto) 5 % (0-9) Eosinophils (%) (Auto) 2 % (0-3) Basophils (%) (Auto) 1 % (0-3) Neutrophils # (Auto) 11.2 x10^3/uL (1.8-7.7) Lymphocytes # (Auto) 2.0 x10^3/uL (1.0-4.8) Monocytes # (Auto) 0.7 x10^3/uL (0.0-1.1) Eosinophils # (Auto) 0.3 x10^3/uL (0.0-0.7) Basophils # (Auto) 0.1 x10^3/uL (0.0-0.2) Sodium Level 140 mmol/L (136-145) Potassium Level 3.2 mmol/L (3.5-5.1) Chloride Level 102 mmol/L (98-107) Carbon Dioxide Level 31 mmol/L (21-32) Anion Gap 7 (6-14) Blood Urea Nitrogen 15 mg/dL (7-20) Creatinine 0.7 mg/dL (0.6-1.0) Estimated GFR (Cockcroft-Gault) 79.9 BUN/Creatinine Ratio 21 (6-20) Glucose Level 101 mg/dL (70-99) Calcium Level 8.2 mg/dL (8.5-10.1) Total Bilirubin 0.4 mg/dL (0.2-1.0) Aspartate Amino Transf (AST/SGOT) 21 U/L (15-37) Alanine Aminotransferase (ALT/SGPT) 16 U/L (14-59) Alkaline Phosphatase 84 U/L (46-116) Total Protein 5.5 g/dL (6.4-8.2) Albumin 2.4 g/dL (3.4-5.0) Albumin/Globulin Ratio 0.8 (1.0-1.7) Urine Collection Type Unknown Urine Color Yellow Urine Clarity Turbid Urine pH 8.0 (<5.0-8.0) Urine Specific [place] 1.015 (1.000-1.030) Urine Protein Negative mg/dL (NEG-TRACE) Urine Glucose (UA) Negative mg/dL (NEG) Urine Ketones (Stick) Trace mg/dL (NEG) Urine Blood Negative (NEG) Urine Nitrite Negative (NEG) Urine Bilirubin Negative (NEG) Urine Urobilinogen Dipstick 1.0 mg/dL (0.2 mg/dL) Urine Leukocyte Esterase Small (NEG) Urine RBC Occ /HPF (0-2) Urine WBC 1-4 /HPF (0-4) Urine Squamous Epithelial Cells Few /LPF Urine Amorphous Sediment Present /HPF Urine Bacteria Few /HPF (0-FEW) Urine Mucus Slight /LPF Glucose (Fingerstick) 111 mg/dL (70-99) 106 mg/dL (70-99) Test 09/21/19 16:54 09/22/19 16:40 Glucose (Fingerstick) 93 mg/dL (70-99) 98 mg/dL (70-99) Laboratory Tests Test 09/22/19 16:40 Glucose (Fingerstick) 98 mg/dL (70-99) Microbiology 09/21/19 Urine Culture - Final, Complete Medications Current Medications Acetaminophen (Tylenol) 650 mg 1X ONCE PO ; Start 09/21/19 at 03:30; Stop 09/21/19 at 03:31; Status DC Sodium Chloride 1,000 ml @ 75 mls/hr [id number] IV Last administered on 09/21/19at 02:50; Start 09/21/19 at 02:50; Stop 09/21/19 at 09:21; Status DC Acetaminophen (Tylenol) 650 mg PRN Q4HRS PRN PO FEVER > 100.3'F; Start 09/21/19 at 03:00; Stop 09/22/19 at 02:59; Status DC Sodium Chloride 1,000 ml @ 50 mls/hr Q20H IV ; Start 09/21/19 at 08:00; Stop 09/21/19 at 09:21; Status DC Insulin Human Lispro (HumaLOG) 0-5 UNITS TIDWMEALS SQ ; Start 09/21/19 at 08:00 Dextrose (Dextrose 50%-Water Syringe) 12.5 gm PRN Q15MIN PRN IV SEE COMMENTS; Start 09/21/19 at 06:45 Acetaminophen (Tylenol Supp) 325 mg PRN Q6HRS PRN [place] MILD PAIN / TEMP > 100.3'F; Start 09/21/19 at 06:45 Ondansetron HCl (Zofran) 4 mg PRN Q6HRS PRN IVP NAUSEA/VOMITING 1ST CHOICE; Start 09/21/19 at 06:45 Potassium Chloride/Dextrose/ Sod Cl 1,000 ml @ 100 mls/hr Q10H IV Last administered on 09/22/19at 03:10; Start 09/21/19 at 09:30 Potassium Chloride (Klor-Con) 20 meq 1X ONCE PO ; Start 09/21/19 at 09:30; Stop 09/21/19 at 09:31; Status DC Acetaminophen (Tylenol) 650 mg PRN Q4HRS PRN PO PAIN; Start 09/21/19 at 09:30 Atorvastatin Calcium (Lipitor) 20 mg HS PO ; Start 09/21/19 at 21:00 Ketoconazole (Nizoral 2% Topical) 1 timmy BID TP ; Start 09/21/19 at 21:00 Latanoprost (Xalatan) 1 drop QHS OU ; Start 09/21/19 at 21:00 Senna/Docusate Sodium (Senna Plus) 1 tab DAILY PO ; Start 09/22/19 at 09:00 Sertraline HCl (Zoloft) 50 mg DAILY PO ; Start 09/22/19 at 09:00 Linagliptin (Tradjenta) 5 mg DAILY PO ; Start 09/21/19 at 10:00 Non-Formulary Medication (Melatonin ) 1 tab QHS PO ; Start 09/21/19 at 21:00; Status UNV Lorazepam (Ativan Inj) 1 mg 1X ONCE IVP Last administered on 09/21/19at 15:31; Start 09/21/19 at 15:00; Stop 09/21/19 at 15:01; Status DC Morphine Sulfate (Morphine Sulfate) 2 mg PRN Q2HR PRN IV PAIN Last administered on 09/21/19at 15:27; Start 09/21/19 at 15:00 Lorazepam (Ativan Inj) 2 mg 1X ONCE IVP Last administered on 09/22/19at 09:28; Start 09/22/19 at 09:00; Stop 09/22/19 at 09:01; Status DC Active Scripts Active Reported Sertraline Hcl 50 Mg Tablet 50 Mg PO DAILY Senna-Docusate Sodium Tablet (Sennosides/Docusate Sodium) 1 Each Tablet 1 Tab PO DAILY 20 Days Oxycodone Hcl 5 Mg Capsule 5 Mg PO PRN Q12HR PRN Melatonin 3 Mg Tablet 1 Tab PO QHS Latanoprost 2.5 Ml Drops 1 Drop EACHEYE QHS Lantus Solostar (Insulin Glargine,Hum.rec.anlog) 100 Unit/1 Ml Insuln.pen 5 Unit SQ QHS Ketoconazole 15 Gm Cream..g. 1 Timmy TP BID Humalog (Insulin Lispro) 100 Unit/1 Ml Vial 100 Unit SQ PRN AFTMEALHC PRN Doxycycline Hyclate 100 Mg Capsule 1 Cap PO BID Diclofenac Sodium 100 Gm Gel..gram. 100 Gm TP BID D3-50 (Cholecalciferol (Vitamin D3)) 50,000 Unit Capsule 1 Cap PO WEEKLY 28 Days Atorvastatin Calcium 20 Mg Tablet 20 Mg PO HS Aspirin 81 Mg Tab.chew 2 Tab PO DAILY Aricept (Donepezil Hcl) 5 Mg Tablet 1 Tab PO BID 30 Days Nesina (Alogliptin Benzoate) 25 Mg Tablet 1 Tab PO DAILY 30 Days Tylenol (Acetaminophen) 325 Mg Tablet 650 Mg PO PRN Q4HRS PRN Vitals/I & O Vital Sign - Last 24 Hours 09/21/19 09/21/19 09/21/19 09/22/19 19:00 20:00 23:00 03:20 Temp 99.7 98.9 99.7 98.9 Pulse 80 75 Resp 18 18 20 B/P (MAP) 148/76 (100) 136/68 (90) Pulse Ox 96 95 O2 Delivery Room Air Room Air Room Air 09/22/19 09/22/19 09/22/19 08:00 11:00 15:00 Pulse 73 70 Resp 16 16 B/P (MAP) 109/45 (66) 110/48 (68) Pulse Ox 96 96 O2 Delivery Room Air Room Air Room Air Intake and Output 09/21/19 09/21/19 09/22/19 15:00 23:00 07:00 Intake Total 150 ml 200 ml Output Total 900 ml Balance 150 ml 200 ml -900 ml Justicifation of Admission Dx: Justifications for Admission: Justification of Admission Dx: Yes BOYD BRYSON MD Sep 22, 2019 18:03
[2019-09-22 19:00] VITALS: BP 146/70
[2019-09-22] MEDS: ATORVASTATIN CALCIUM 20 MG TABLET PO SCH (21:00)
[2019-09-22] MEDS: LATANOPROST 0.005% OPHTH SOLUTION 2.5ML BOTTLE. OU SCH (21:00)
--- NOTE | 2019-09-22 21:00 | NUR ---
patient uncooperative refusing meds,pulled IV wont keep oxygen on fighting nurse refusing IV to be started @ this time
[2019-09-22 23:00] VITALS: BP 125/74
[2019-09-23] MEDS: POTASSIUM CL 20MEQ D5-0.45NACL 1,000 ML IV SCH ×3 (01:30→21:30)
[2019-09-23 03:00] VITALS: BP 140/57
[2019-09-23 04:52] LABS: BASO # 0.1 x10^3/uL (0.0-0.2); BASO % 1 % (0-3); EOS # 0.3 x10^3/uL (0.0-0.7); EOS % 3 % (0-3); HEMATOCRIT 37.5 % (36.0-47.0); HEMOGLOBIN 12.2 g/dL (12.0-15.5); LYMPH # 1.9 x10^3/uL (1.0-4.8); LYMPH % 17 % (24-48); MEAN CORPUSCULAR HEMOGLOBIN 30 pg (25-35); MEAN CORPUSCULAR HGB CONC 33 g/dL (31-37); MEAN CORPUSCULAR VOLUME 91 fL (79-100); MONO # 0.4 x10^3/uL (0.0-1.1); MONO % 4 % (0-9); NEUT # 8.4 x10^3/uL (1.8-7.7); NEUT % 75 % (31-73); PLATELET COUNT 345 x10^3/uL (140-400); RED CELL DISTRIBUTION WIDTH 16.8 % (11.5-14.5); WHITE BLOOD COUNT 11.1 x10^3/uL (4.0-11.0)
[2019-09-23 05:06] LABS: CALCIUM 7.9 mg/dL (8.5-10.1); CREATININE 0.6 mg/dL (0.6-1.0); GFR 95.5; POTASSIUM 3.1 mmol/L (3.5-5.1)
[2019-09-23 07:00] VITALS: BP 185/74
[2019-09-23] MEDS: INSULIN LISPRO 300 UNITS/3 ML VIAL. SQ SCH ×3 (08:00→17:00)
[2019-09-23] MEDS: SENNOSIDES/DOCUSATE 8.6/50MG TABLET. PO SCH (08:09)
[2019-09-23] MEDS: LINAGLIPTIN 5 MG TABLET PO SCH (08:09)
[2019-09-23] MEDS: SERTRALINE 50 MG TABLET. PO SCH (08:09)
[2019-09-23] MEDS: KETOCONAZOLE 2% TOPICAL CREAM 15GM TUBE. TP SCH ×2 (08:12→20:35)
[2019-09-23] MEDS: MORPHINE SULFATE 2 MG/ML VIAL. IV PRN (08:18)
[2019-09-23] MEDS: diphenhydrAMINE HCL 25 MG CAPSULE PO PRN (09:07)
--- NOTE | 2019-09-23 09:41 | PDOC ---
Date of Service: DATE: 09/23/19 TIME: 09:37 Subjective: Subjective: "Itch!" Objective: Objective: D/w nurse - Unable to have swallow eval yesterday after received Ativan. More alert/cooperative today? Tolerating diet. C/o itching, has a rash, to have MRI later re: sacral wound. Reviewed chart - some aggression, etc. yesterday - pulled IV. Vital Signs: Vital Signs Date Time Temp Pulse Resp B/P (MAP) Pulse Ox O2 Delivery O2 Flow Rate FiO2 09/23/19 08:48 Room Air 09/23/19 07:00 97.7 70 16 185/74 (111) 96 97.7 Labs: Laboratory Tests Test 09/22/19 16:40 09/22/19 17:40 09/22/19 22:05 09/23/19 03:50 Glucose (Fingerstick) 98 mg/dL 84 mg/dL SARS-CoV-2 Antigen (Rapid) Negative White Blood Count 11.1 x10^3/uL Red Blood Count 4.10 x10^6/uL Hemoglobin 12.2 g/dL Hematocrit 37.5 % Mean Corpuscular Volume 91 fL Mean Corpuscular Hemoglobin 30 pg Mean Corpuscular Hemoglobin Concent 33 g/dL Red Cell Distribution Width 16.8 % Platelet Count 345 x10^3/uL Neutrophils (%) (Auto) 75 % Lymphocytes (%) (Auto) 17 % Monocytes (%) (Auto) 4 % Eosinophils (%) (Auto) 3 % Basophils (%) (Auto) 1 % Neutrophils # (Auto) 8.4 x10^3/uL Lymphocytes # (Auto) 1.9 x10^3/uL Monocytes # (Auto) 0.4 x10^3/uL Eosinophils # (Auto) 0.3 x10^3/uL Basophils # (Auto) 0.1 x10^3/uL Sodium Level 142 mmol/L Potassium Level 3.1 mmol/L Chloride Level 105 mmol/L Carbon Dioxide Level 28 mmol/L Anion Gap 9 Blood Urea Nitrogen 9 mg/dL Creatinine 0.6 mg/dL Estimated GFR (Cockcroft-Gault) 95.5 Glucose Level 77 mg/dL Calcium Level 7.9 mg/dL Test 09/23/19 07:38 Glucose (Fingerstick) 109 mg/dL PE: GEN: laying naked in bed LUNGS: CTAB HEART: RRR ABD: non-distended, non-tender SKIN: some erythematous patches noted on abdomen, chest - cheeks look flushed - difficult exam, doesn't want me to touch her NEURO/PSYCH: more alert today - says some words in Armenian A/P: PEG displacement Pruritus COVID negative -- More cooperative today? Tolerating diet per nurse, awaiting [employer]END[employer] eval. Justicifation of Admission Dx: Justifications for Admission: Justification of Admission Dx: Yes ARTUR CALDERON Sep 23, 2019 09:41
--- NOTE | 2019-09-23 09:55 | NUR ---
[facility] following. Discussed with RN, pt having an MRI today after 1100. Dr. Melchor plans to speak with pt's son RE goals of care and possible hospice. [facility] will continue to follow for discharge planning. Pt can return to [facility] on hospice. Addendum: 09/23/19 at 1544 by TERA YOUNGBLOOD Updates faxed to [facility].
[2019-09-23 11:00] VITALS: BP 142/70
[2019-09-23 12:27] VITALS: BP 185/74
--- NOTE | 2019-09-23 12:45 | PDOC ---
PROGRESS NOTES Date of Service: DATE: 09/23/19 TIME: 12:35 Chief Complaint Chief Complaint Loss of PEG tube History of Present Illness History of Present Illness Patient more conversive this morning, albeit in broken [place] Korean. She states she is "very itchy" and requesting a shower. Per nursing staff, MRI scheduled this for this morning for possible osteomyelitis was canceled because patient became combative. I spoke with patient's son and [id number] by phone. Updated them on her likely poor prognosis, since we have been unable to formally evaluate her stage IV sacral ulcer with MRI. Per patient's family, if repeat MRI does show osteomyelitis of her sacrum, they would like to pursue hospice care. Vitals Vitals Vital Signs Date Time Temp Pulse Resp B/P (MAP) Pulse Ox O2 Delivery O2 Flow Rate FiO2 09/23/19 12:27 97.7 70 185/74 (111) 96 Room Air 97.7 09/23/19 07:00 16 Physical Exam General: Alert, Cooperative, No acute distress Heart: Regular rate, Normal S1, Normal S2 Abdomen: Soft, No tenderness Extremities: No clubbing, No cyanosis, No edema Skin: No rashes, Other (3.5 x 4.5 x 2 cm open ulceration to sacrum with granulation tissue; able to touch bone) Labs LABS Laboratory Tests Test 09/22/19 16:40 09/22/19 17:40 09/22/19 22:05 09/23/19 03:50 Glucose (Fingerstick) 98 mg/dL (70-99) 84 mg/dL (70-99) SARS-CoV-2 Antigen (Rapid) Negative (NEGATIVE) White Blood Count 11.1 x10^3/uL (4.0-11.0) Red Blood Count 4.10 x10^6/uL (3.50-5.40) Hemoglobin 12.2 g/dL (12.0-15.5) Hematocrit 37.5 % (36.0-47.0) Mean Corpuscular Volume 91 fL (79-100) Mean Corpuscular Hemoglobin 30 pg (25-35) Mean Corpuscular Hemoglobin Concent 33 g/dL (31-37) Red Cell Distribution Width 16.8 % (11.5-14.5) Platelet Count 345 x10^3/uL (140-400) Neutrophils (%) (Auto) 75 % (31-73) Lymphocytes (%) (Auto) 17 % (24-48) Monocytes (%) (Auto) 4 % (0-9) Eosinophils (%) (Auto) 3 % (0-3) Basophils (%) (Auto) 1 % (0-3) Neutrophils # (Auto) 8.4 x10^3/uL (1.8-7.7) Lymphocytes # (Auto) 1.9 x10^3/uL (1.0-4.8) Monocytes # (Auto) 0.4 x10^3/uL (0.0-1.1) Eosinophils # (Auto) 0.3 x10^3/uL (0.0-0.7) Basophils # (Auto) 0.1 x10^3/uL (0.0-0.2) Sodium Level 142 mmol/L (136-145) Potassium Level 3.1 mmol/L (3.5-5.1) Chloride Level 105 mmol/L (98-107) Carbon Dioxide Level 28 mmol/L (21-32) Anion Gap 9 (6-14) Blood Urea Nitrogen 9 mg/dL (7-20) Creatinine 0.6 mg/dL (0.6-1.0) Estimated GFR (Cockcroft-Gault) 95.5 Glucose Level 77 mg/dL (70-99) Calcium Level 7.9 mg/dL (8.5-10.1) Test 09/23/19 07:38 Glucose (Fingerstick) 109 mg/dL (70-99) Review of Systems Review of Systems Itching. Further ROS unable to obtain due to language barrier. Assessment and Plan Assessmemt and Plan 1) Loss of peg tube 2) Severe malnutrition 3) Dementia - near hospice status, lives in snf 4) Leukocytosis, NOS 5) Hypokalemia 6) Stage IV sacral ulcer Plan: Swallow study pending and MRI pending due to combative patient. Consult to wound care for sacral ulcer and surgery for PEG tube replacement. Patient's son and [id number] would like results of MRI before making decision to pursue hospice care. Comment Review of Relevant I have reviewed the following items pawan (where applicable) has been applied. Labs Laboratory Tests Test 09/21/19 16:54 09/22/19 16:40 09/22/19 17:40 09/22/19 22:05 Glucose (Fingerstick) 93 mg/dL (70-99) 98 mg/dL (70-99) 84 mg/dL (70-99) SARS-CoV-2 Antigen (Rapid) Negative (NEGATIVE) Test 09/23/19 03:50 09/23/19 07:38 White Blood Count 11.1 x10^3/uL (4.0-11.0) Red Blood Count 4.10 x10^6/uL (3.50-5.40) Hemoglobin 12.2 g/dL (12.0-15.5) Hematocrit 37.5 % (36.0-47.0) Mean Corpuscular Volume 91 fL (79-100) Mean Corpuscular Hemoglobin 30 pg (25-35) Mean Corpuscular Hemoglobin Concent 33 g/dL (31-37) Red Cell Distribution Width 16.8 % (11.5-14.5) Platelet Count 345 x10^3/uL (140-400) Neutrophils (%) (Auto) 75 % (31-73) Lymphocytes (%) (Auto) 17 % (24-48) Monocytes (%) (Auto) 4 % (0-9) Eosinophils (%) (Auto) 3 % (0-3) Basophils (%) (Auto) 1 % (0-3) Neutrophils # (Auto) 8.4 x10^3/uL (1.8-7.7) Lymphocytes # (Auto) 1.9 x10^3/uL (1.0-4.8) Monocytes # (Auto) 0.4 x10^3/uL (0.0-1.1) Eosinophils # (Auto) 0.3 x10^3/uL (0.0-0.7) Basophils # (Auto) 0.1 x10^3/uL (0.0-0.2) Sodium Level 142 mmol/L (136-145) Potassium Level 3.1 mmol/L (3.5-5.1) Chloride Level 105 mmol/L (98-107) Carbon Dioxide Level 28 mmol/L (21-32) Anion Gap 9 (6-14) Blood Urea Nitrogen 9 mg/dL (7-20) Creatinine 0.6 mg/dL (0.6-1.0) Estimated GFR (Cockcroft-Gault) 95.5 Glucose Level 77 mg/dL (70-99) Calcium Level 7.9 mg/dL (8.5-10.1) Glucose (Fingerstick) 109 mg/dL (70-99) Laboratory Tests Test 09/22/19 16:40 09/22/19 17:40 09/22/19 22:05 09/23/19 03:50 Glucose (Fingerstick) 98 mg/dL (70-99) 84 mg/dL (70-99) SARS-CoV-2 Antigen (Rapid) Negative (NEGATIVE) White Blood Count 11.1 x10^3/uL (4.0-11.0) Red Blood Count 4.10 x10^6/uL (3.50-5.40) Hemoglobin 12.2 g/dL (12.0-15.5) Hematocrit 37.5 % (36.0-47.0) Mean Corpuscular Volume 91 fL (79-100) Mean Corpuscular Hemoglobin 30 pg (25-35) Mean Corpuscular Hemoglobin Concent 33 g/dL (31-37) Red Cell Distribution Width 16.8 % (11.5-14.5) Platelet Count 345 x10^3/uL (140-400) Neutrophils (%) (Auto) 75 % (31-73) Lymphocytes (%) (Auto) 17 % (24-48) Monocytes (%) (Auto) 4 % (0-9) Eosinophils (%) (Auto) 3 % (0-3) Basophils (%) (Auto) 1 % (0-3) Neutrophils # (Auto) 8.4 x10^3/uL (1.8-7.7) Lymphocytes # (Auto) 1.9 x10^3/uL (1.0-4.8) Monocytes # (Auto) 0.4 x10^3/uL (0.0-1.1) Eosinophils # (Auto) 0.3 x10^3/uL (0.0-0.7) Basophils # (Auto) 0.1 x10^3/uL (0.0-0.2) Sodium Level 142 mmol/L (136-145) Potassium Level 3.1 mmol/L (3.5-5.1) Chloride Level 105 mmol/L (98-107) Carbon Dioxide Level 28 mmol/L (21-32) Anion Gap 9 (6-14) Blood Urea Nitrogen 9 mg/dL (7-20) Creatinine 0.6 mg/dL (0.6-1.0) Estimated GFR (Cockcroft-Gault) 95.5 Glucose Level 77 mg/dL (70-99) Calcium Level 7.9 mg/dL (8.5-10.1) Test 09/23/19 07:38 Glucose (Fingerstick) 109 mg/dL (70-99) Microbiology 09/21/19 Urine Culture - Final, Complete Medications Current Medications Acetaminophen (Tylenol) 650 mg 1X ONCE PO ; Start 09/21/19 at 03:30; Stop 09/21/19 at 03:31; Status DC Sodium Chloride 1,000 ml @ 75 mls/hr [id number] IV Last administered on 09/21/19at 02:50; Start 09/21/19 at 02:50; Stop 09/21/19 at 09:21; Status DC Acetaminophen (Tylenol) 650 mg PRN Q4HRS PRN PO FEVER > 100.3'F; Start 09/21/19 at 03:00; Stop 09/22/19 at 02:59; Status DC Sodium Chloride 1,000 ml @ 50 mls/hr Q20H IV ; Start 09/21/19 at 08:00; Stop 09/21/19 at 09:21; Status DC Insulin Human Lispro (HumaLOG) 0-5 UNITS TIDWMEALS SQ ; Start 09/21/19 at 08:00 Dextrose (Dextrose 50%-Water Syringe) 12.5 gm PRN Q15MIN PRN IV SEE COMMENTS; Start 09/21/19 at 06:45 Acetaminophen (Tylenol Supp) 325 mg PRN Q6HRS PRN [place] MILD PAIN / TEMP > 100.3'F; Start 09/21/19 at 06:45 Ondansetron HCl (Zofran) 4 mg PRN Q6HRS PRN IVP NAUSEA/VOMITING 1ST CHOICE; Start 09/21/19 at 06:45 Potassium Chloride/Dextrose/ Sod Cl 1,000 ml @ 100 mls/hr Q10H IV Last administered on 09/22/19at 03:10; Start 09/21/19 at 09:30 Potassium Chloride (Klor-Con) 20 meq 1X ONCE PO ; Start 09/21/19 at 09:30; Stop 09/21/19 at 09:31; Status DC Acetaminophen (Tylenol) 650 mg PRN Q4HRS PRN PO PAIN; Start 09/21/19 at 09:30 Atorvastatin Calcium (Lipitor) 20 mg HS PO ; Start 09/21/19 at 21:00 Ketoconazole (Nizoral 2% Topical) 1 timmy BID TP Last administered on 09/23/19at 08:12; Start 09/21/19 at 21:00 Latanoprost (Xalatan) 1 drop QHS OU ; Start 09/21/19 at 21:00 Senna/Docusate Sodium (Senna Plus) 1 tab DAILY PO Last administered on 09/23/19at 08:09; Start 09/22/19 at 09:00 Sertraline HCl (Zoloft) 50 mg DAILY PO Last administered on 09/23/19at 08:09; Start 09/22/19 at 09:00 Linagliptin (Tradjenta) 5 mg DAILY PO Last administered on 09/23/19at 08:09; Start 09/21/19 at 10:00 Non-Formulary Medication (Melatonin ) 1 tab QHS PO ; Start 09/21/19 at 21:00; Status UNV Lorazepam (Ativan Inj) 1 mg 1X ONCE IVP Last administered on 09/21/19at 15:31; Start 09/21/19 at 15:00; Stop 09/21/19 at 15:01; Status DC Morphine Sulfate (Morphine Sulfate) 2 mg PRN Q2HR PRN IV PAIN Last administered on 09/23/19at 08:18; Start 09/21/19 at 15:00 Lorazepam (Ativan Inj) 2 mg 1X ONCE IVP Last administered on 09/22/19at 09:28; Start 09/22/19 at 09:00; Stop 09/22/19 at 09:01; Status DC Lorazepam (Ativan Inj) 2 mg PRN DAILY PRN IVP ANXIETY / AGITATION; Start 09/22/19 at 18:45 Diphenhydramine HCl (Benadryl) 25 mg PRN Q6HRS PRN PO ITCHING Last administered on 09/23/19at 09:07; Start 09/23/19 at 08:45 Active Scripts Active Reported Sertraline Hcl 50 Mg Tablet 50 Mg PO DAILY Senna-Docusate Sodium Tablet (Sennosides/Docusate Sodium) 1 Each Tablet 1 Tab PO DAILY 20 Days Oxycodone Hcl 5 Mg Capsule 5 Mg PO PRN Q12HR PRN Melatonin 3 Mg Tablet 1 Tab PO QHS Latanoprost 2.5 Ml Drops 1 Drop EACHEYE QHS Lantus Solostar (Insulin Glargine,Hum.rec.anlog) 100 Unit/1 Ml Insuln.pen 5 Unit SQ QHS Ketoconazole 15 Gm Cream..g. 1 Timmy TP BID Humalog (Insulin Lispro) 100 Unit/1 Ml Vial 100 Unit SQ PRN AFTMEALHC PRN Doxycycline Hyclate 100 Mg Capsule 1 Cap PO BID Diclofenac Sodium 100 Gm Gel..gram. 100 Gm TP BID D3-50 (Cholecalciferol (Vitamin D3)) 50,000 Unit Capsule 1 Cap PO WEEKLY 28 Days Atorvastatin Calcium 20 Mg Tablet 20 Mg PO HS Aspirin 81 Mg Tab.chew 2 Tab PO DAILY Aricept (Donepezil Hcl) 5 Mg Tablet 1 Tab PO BID 30 Days Nesina (Alogliptin Benzoate) 25 Mg Tablet 1 Tab PO DAILY 30 Days Tylenol (Acetaminophen) 325 Mg Tablet 650 Mg PO PRN Q4HRS PRN Vitals/I & O Vital Sign - Last 24 Hours 09/22/19 09/22/19 09/22/19 09/22/19 15:00 19:00 20:00 23:00 Temp 98.3 97.8 98.3 97.8 Pulse 70 70 72 Resp 16 18 18 B/P (MAP) 110/48 (68) 146/70 (95) 125/74 (91) Pulse Ox 96 86 82 O2 Delivery Room Air Room Air Room Air Room Air 09/23/19 09/23/19 09/23/19 09/23/19 01:00 03:00 07:00 08:00 Temp 98.8 97.7 98.8 97.7 Pulse 77 70 Resp 20 16 B/P (MAP) 140/57 (84) 185/74 (111) Pulse Ox 88 96 96 O2 Delivery Room Air Room Air Room Air 09/23/19 09/23/19 09/23/19 08:18 08:48 12:27 Temp 97.7 97.7 Pulse 70 B/P (MAP) 185/74 (111) Pulse Ox 96 O2 Delivery Room Air Room Air Room Air Intake and Output 09/22/19 09/22/19 09/23/19 15:00 23:00 07:00 Intake Total 100 ml 150 ml 0 ml Output Total 550 ml 400 ml Balance 100 ml -400 ml -400 ml Nutrition Consultation Dietary Evaluation: Recommendations by RD: Dietary education by RD, Increase Calorie Intake, Protein supplementation Comments: glucerna tid, rec mvi and vit c per wound protocal Expected Outcomes/Goals: PEG replacement vs hospice Malnutrition Findings: Body Fat Depletion (Non Severe: Mild Depletion Weight Status: Underweight Justicifation of Admission Dx: Justifications for Admission: Justification of Admission Dx: Yes BOYD BRYSON MD Sep 23, 2019 12:45
[2019-09-23] MEDS ORDERED: POTASSIUM CHLORIDE 10 MEQ TABLET.ER. PO ONE (16:45)
[2019-09-23 19:00] VITALS: BP 124/98
[2019-09-23] MEDS: LATANOPROST 0.005% OPHTH SOLUTION 2.5ML BOTTLE. OU SCH (20:31)
[2019-09-23] MEDS: ATORVASTATIN CALCIUM 20 MG TABLET PO SCH (20:32)
[2019-09-23 23:00] VITALS: BP 119/52
[2019-09-24 03:00] VITALS: BP 121/59
[2019-09-24 07:00] VITALS: BP 91/64
[2019-09-24] MEDS: POTASSIUM CL 20MEQ D5-0.45NACL 1,000 ML IV SCH ×2 (07:30→17:30)
[2019-09-24] MEDS: INSULIN LISPRO 300 UNITS/3 ML VIAL. SQ SCH ×3 (08:00→17:35)
[2019-09-24] MEDS: diphenhydrAMINE HCL 25 MG CAPSULE PO PRN (08:31)
[2019-09-24] MEDS: KETOCONAZOLE 2% TOPICAL CREAM 15GM TUBE. TP SCH ×2 (08:34→21:40)
[2019-09-24] MEDS: SENNOSIDES/DOCUSATE 8.6/50MG TABLET. PO SCH (08:40)
[2019-09-24] MEDS: SERTRALINE 50 MG TABLET. PO SCH (08:41)
[2019-09-24] MEDS: LINAGLIPTIN 5 MG TABLET PO SCH (08:41)
--- NOTE | 2019-09-24 08:41 | NUR ---
Pt. confused but c/o itching. Rivera offered, pt refused and threw pill across room.Unable to locate pill at this time. Addendum: 09/24/19 at 1445 by NERI KENNY RN Pt. also refusing new IV.
--- NOTE | 2019-09-24 09:40 | NUR ---
[facility] following. Discussed with RN, pt refused MRI twice yesterday. Family needing to decide whether they want to sedate pt for MRI or not Dr. Melchor discussing with family RE hospice. [facility] will continue to follow. Addendum: 09/24/19 at 1616 by TERA YOUNGBLOOD Pt's family signed consents for MRI with sedation. Pt scheduled for 1000 tomorrow (09/25/2019), as needed to be coordinated with surgery. [facility] will continue to follow.
--- NOTE | 2019-09-24 09:51 | NUR ---
Spoke with RUPINDER Nuñez WCRAilyn this am re: MRI with sedation. Spoke with family and obtained telephone consent to do MRI, Dr Devine and RUPINDER Nuñez notfied.
--- NOTE | 2019-09-24 09:58 | PDOC ---
Date of Service: DATE: 09/24/19 TIME: 09:56 Objective: Objective: D/w nurse - pt threw a pill across the room earlier. Reviewed chart - plans for MRI w/ sedation. Swallow eval pending w/ mental status issues and need for imaging. Vital Signs: Vital Signs Date Time Temp Pulse Resp B/P (MAP) Pulse Ox O2 Delivery O2 Flow Rate FiO2 09/24/19 07:15 Room Air 09/24/19 07:00 98.3 73 16 91/64 (73) 98 98.3 Labs: Laboratory Tests Test 09/23/19 17:39 09/23/19 21:22 09/24/19 07:35 Glucose (Fingerstick) 176 mg/dL (70-99) 149 mg/dL (70-99) 117 mg/dL (70-99) PE: GEN: chronically ill LUNGS: CTAB HEART: RRR ABD: non-distended NEURO/PSYCH: confused A/P: PEG displacement -- Plans as above - PEG placement on hold. Justicifation of Admission Dx: Justifications for Admission: Justification of Admission Dx: Yes ARTUR CALDERON Sep 24, 2019 09:58
[2019-09-24 11:00] VITALS: BP 101/65
[2019-09-24 15:00] VITALS: BP 92/64
--- NOTE | 2019-09-24 18:55 | PDOC ---
PROGRESS NOTES Date of Service: DATE: 09/24/19 TIME: 18:55 Chief Complaint Chief Complaint Loss of PEG tube History of Present Illness History of Present Illness Patient seen and evaluated. She is sleeping peacefully. No acute events overnight. Vitals Vitals Vital Signs Date Time Temp Pulse Resp B/P (MAP) Pulse Ox O2 Delivery O2 Flow Rate FiO2 09/24/19 15:00 98.7 80 16 92/64 (73) 94 Room Air 98.7 Physical Exam General: Alert, Cooperative, No acute distress Heart: Regular rate, Normal S1, Normal S2 Abdomen: Soft, No tenderness Extremities: No clubbing, No cyanosis, No edema Skin: No rashes, Other (3.5 x 4.5 x 2 cm open ulceration to sacrum with granulation tissue; able to touch bone) Labs LABS Laboratory Tests Test 09/23/19 21:22 09/24/19 07:35 09/24/19 11:13 09/24/19 17:30 Glucose (Fingerstick) 149 mg/dL (70-99) 117 mg/dL (70-99) 124 mg/dL (70-99) 161 mg/dL (70-99) Review of Systems Review of Systems Unable to obtain due to language barrier Assessment and Plan Assessmemt and Plan I had several discussions with patient's son and [id number]. They are concerned about her quality of life given her stage IV pressure ulcer, and would like definitive diagnosis of osteomyelitis prior to pursuing hospice care. MRI pending. Problems: (1) PEG (percutaneous endoscopic gastrostomy) adjustment/replacement/removal Comment Review of Relevant I have reviewed the following items pawan (where applicable) has been applied. Labs Laboratory Tests Test 09/22/19 22:05 09/23/19 03:50 09/23/19 07:38 09/23/19 17:39 Glucose (Fingerstick) 84 mg/dL (70-99) 109 mg/dL (70-99) 176 mg/dL (70-99) White Blood Count 11.1 x10^3/uL (4.0-11.0) Red Blood Count 4.10 x10^6/uL (3.50-5.40) Hemoglobin 12.2 g/dL (12.0-15.5) Hematocrit 37.5 % (36.0-47.0) Mean Corpuscular Volume 91 fL (79-100) Mean Corpuscular Hemoglobin 30 pg (25-35) Mean Corpuscular Hemoglobin Concent 33 g/dL (31-37) Red Cell Distribution Width 16.8 % (11.5-14.5) Platelet Count 345 x10^3/uL (140-400) Neutrophils (%) (Auto) 75 % (31-73) Lymphocytes (%) (Auto) 17 % (24-48) Monocytes (%) (Auto) 4 % (0-9) Eosinophils (%) (Auto) 3 % (0-3) Basophils (%) (Auto) 1 % (0-3) Neutrophils # (Auto) 8.4 x10^3/uL (1.8-7.7) Lymphocytes # (Auto) 1.9 x10^3/uL (1.0-4.8) Monocytes # (Auto) 0.4 x10^3/uL (0.0-1.1) Eosinophils # (Auto) 0.3 x10^3/uL (0.0-0.7) Basophils # (Auto) 0.1 x10^3/uL (0.0-0.2) Sodium Level 142 mmol/L (136-145) Potassium Level 3.1 mmol/L (3.5-5.1) Chloride Level 105 mmol/L (98-107) Carbon Dioxide Level 28 mmol/L (21-32) Anion Gap 9 (6-14) Blood Urea Nitrogen 9 mg/dL (7-20) Creatinine 0.6 mg/dL (0.6-1.0) Estimated GFR (Cockcroft-Gault) 95.5 Glucose Level 77 mg/dL (70-99) Calcium Level 7.9 mg/dL (8.5-10.1) Test 09/23/19 21:22 09/24/19 07:35 09/24/19 11:13 09/24/19 17:30 Glucose (Fingerstick) 149 mg/dL (70-99) 117 mg/dL (70-99) 124 mg/dL (70-99) 161 mg/dL (70-99) Laboratory Tests Test 09/23/19 21:22 09/24/19 07:35 09/24/19 11:13 09/24/19 17:30 Glucose (Fingerstick) 149 mg/dL (70-99) 117 mg/dL (70-99) 124 mg/dL (70-99) 161 mg/dL (70-99) Microbiology 09/21/19 Urine Culture - Final, Complete Medications Current Medications Acetaminophen (Tylenol) 650 mg 1X ONCE PO ; Start 09/21/19 at 03:30; Stop 09/21/19 at 03:31; Status DC Sodium Chloride 1,000 ml @ 75 mls/hr [id number] IV Last administered on 09/21/19at 02:50; Start 09/21/19 at 02:50; Stop 09/21/19 at 09:21; Status DC Acetaminophen (Tylenol) 650 mg PRN Q4HRS PRN PO FEVER > 100.3'F; Start 09/21/19 at 03:00; Stop 09/22/19 at 02:59; Status DC Sodium Chloride 1,000 ml @ 50 mls/hr Q20H IV ; Start 09/21/19 at 08:00; Stop 09/21/19 at 09:21; Status DC Insulin Human Lispro (HumaLOG) 0-5 UNITS TIDWMEALS SQ Last administered on 09/24/19at 17:35; Start 09/21/19 at 08:00 Dextrose (Dextrose 50%-Water Syringe) 12.5 gm PRN Q15MIN PRN IV SEE COMMENTS; Start 09/21/19 at 06:45 Acetaminophen (Tylenol Supp) 325 mg PRN Q6HRS PRN GA MILD PAIN / TEMP > 100.3'F; Start 09/21/19 at 06:45 Ondansetron HCl (Zofran) 4 mg PRN Q6HRS PRN IVP NAUSEA/VOMITING 1ST CHOICE; Start 09/21/19 at 06:45 Potassium Chloride/Dextrose/ Sod Cl 1,000 ml @ 100 mls/hr Q10H IV Last administered on 09/22/19at 03:10; Start 09/21/19 at 09:30 Potassium Chloride (Klor-Con) 20 meq 1X ONCE PO ; Start 09/21/19 at 09:30; Sto p 09/21/19 at 09:31; Status DC Acetaminophen (Tylenol) 650 mg PRN Q4HRS PRN PO PAIN; Start 09/21/19 at 09:30 Atorvastatin Calcium (Lipitor) 20 mg HS PO Last administered on 09/23/19 20:32; Start 09/21/19 at 21:00 Ketoconazole (Nizoral 2% Topical) 1 timmy BID TP Last administered on 09/24/19at 08:34; Start 09/21/19 at 21:00 Latanoprost (Xalatan) 1 drop QHS OU Last administered on 09/23/19at 20:31; Start 09/21/19 at 21:00 Senna/Docusate Sodium (Senna Plus) 1 tab DAILY PO Last administered on 09/23/19at 08:09; Start 09/22/19 at 09:00 Sertraline HCl (Zoloft) 50 mg DAILY PO Last administered on 09/23/19 08:09; Start 09/22/19 at 09:00 Linagliptin (Tradjenta) 5 mg DAILY PO Last administered on 09/23/19at 08:09; Start 09/21/19 at 10:00 Non-Formulary Medication (Melatonin ) 1 tab QHS PO ; Start 09/21/19 at 21:00; Status UNV Lorazepam (Ativan Inj) 1 mg 1X ONCE IVP Last administered on 09/21/19at 15:31; Start 09/21/19 at 15:00; Stop 09/21/19 at 15:01; Status DC Morphine Sulfate (Morphine Sulfate) 2 mg PRN Q2HR PRN IV PAIN Last administered on 09/23/19 08:18; Start 09/21/19 at 15:00 Lorazepam (Ativan Inj) 2 mg 1X ONCE IVP Last administered on 09/22/19at 09:28; Start 09/22/19 at 09:00; Stop 09/22/19 at 09:01; Status DC Lorazepam (Ativan Inj) 2 mg PRN DAILY PRN IVP ANXIETY / AGITATION Last administered on 09/23/19at 13:30; Start 09/22/19 at 18:45 Diphenhydramine HCl (Benadryl) 25 mg PRN Q6HRS PRN PO ITCHING Last administered on 09/24/19at 08:31; Start 09/23/19 at 08:45 Potassium Chloride (Klor-Con) 10 meq 1X ONCE PO ; Start 09/23/19 at 16:45; Stop 09/23/19 at 16:46; Status DC Active Scripts Active Reported Sertraline Hcl 50 Mg Tablet 50 Mg PO DAILY Senna-Docusate Sodium Tablet (Sennosides/Docusate Sodium) 1 Each Tablet 1 Tab PO DAILY 20 Days Oxycodone Hcl 5 Mg Capsule 5 Mg PO PRN Q12HR PRN Melatonin 3 Mg Tablet 1 Tab PO QHS Latanoprost 2.5 Ml Drops 1 Drop EACHEYE QHS Lantus Solostar (Insulin Glargine,Hum.rec.anlog) 100 Unit/1 Ml Insuln.pen 5 Unit SQ QHS Ketoconazole 15 Gm Cream..g. 1 Timmy TP BID Humalog (Insulin Lispro) 100 Unit/1 Ml Vial 100 Unit SQ PRN AFTMEALHC PRN Doxycycline Hyclate 100 Mg Capsule 1 Cap PO BID Diclofenac Sodium 100 Gm Gel..gram. 100 Gm TP BID D3-50 (Cholecalciferol (Vitamin D3)) 50,000 Unit Capsule 1 Cap PO WEEKLY 28 Days Atorvastatin Calcium 20 Mg Tablet 20 Mg PO HS Aspirin 81 Mg Tab.chew 2 Tab PO DAILY Aricept (Donepezil Hcl) 5 Mg Tablet 1 Tab PO BID 30 Days Nesina (Alogliptin Benzoate) 25 Mg Tablet 1 Tab PO DAILY 30 Days Tylenol (Acetaminophen) 325 Mg Tablet 650 Mg PO PRN Q4HRS PRN Vitals/I & O Vital Sign - Last 24 Hours 09/23/19 09/23/19 09/23/19 09/23/19 19:00 20:00 20:01 23:00 Temp 98.7 98.8 98.7 98.8 Pulse 73 73 Resp 24 20 B/P (MAP) 124/98 (107) 119/52 (74) Pulse Ox 97 98 O2 Delivery Room Air Room Air Room Air Room Air 09/24/19 09/24/19 09/24/19 09/24/19 03:00 07:00 07:15 11:00 Temp 98.3 97.8 98.3 97.8 Pulse 73 74 Resp 16 18 B/P (MAP) 121/59 (79) 91/64 (73) 101/65 (77) Pulse Ox 98 96 O2 Delivery Room Air Room Air Room Air 09/24/19 15:00 Temp 98.7 98.7 Pulse 80 Resp 16 B/P (MAP) 92/64 (73) Pulse Ox 94 O2 Delivery Room Air Intake and Output 09/23/19 09/23/19 09/24/19 15:00 23:00 07:00 Intake Total 360 ml 60 ml 120 ml Output Total 200 ml Balance 360 ml 60 ml -80 ml Nutrition Consultation Dietary Evaluation: Recommendations by RD: Dietary education by RD, Increase Calorie Intake, Protein supplementation Comments: glucerna tid, rec mvi and vit c per wound protocal Expected Outcomes/Goals: PEG replacement vs hospice Malnutrition Findings: Body Fat Depletion (Non Severe: Mild Depletion Weight Status: Underweight Justicifation of Admission Dx: Justifications for Admission: Justification of Admission Dx: Yes BOYD BRYSON MD Sep 24, 2019 18:55
[2019-09-24 19:00] VITALS: BP 184/88
[2019-09-24] MEDS: ATORVASTATIN CALCIUM 20 MG TABLET PO SCH (21:40)
[2019-09-24] MEDS: LATANOPROST 0.005% OPHTH SOLUTION 2.5ML BOTTLE. OU SCH (21:40)
[2019-09-24 23:00] VITALS: BP 144/69
[2019-09-25] MEDS: POTASSIUM CL 20MEQ D5-0.45NACL 1,000 ML IV SCH ×3 (03:30→23:30)
[2019-09-25 07:00] VITALS: BP 155/82
--- NOTE | 2019-09-25 07:30 | NUR ---
Patient hitting and kicking refusing for me to touch her. i observed patient has brusing on arms. Patient has no IV access. Patient limited rom with left hand. Patient is very aggressive towards me. Patient will have a MRI but will require sedation.
[2019-09-25] MEDS: INSULIN LISPRO 300 UNITS/3 ML VIAL. SQ SCH ×3 (08:00→17:00)
--- NOTE | 2019-09-25 08:30 | PDOC ---
GI PROGRESS NOTES Date of Service: Date/Time DATE: 09/25/19 TIME: 08:27 Subjective Subjective taking PO with assistance combative yesterday per reports today c/o itching- and IV is out Objective Vitals Vital Signs Date Time Temp Pulse Resp B/P (MAP) Pulse Ox O2 Delivery O2 Flow Rate FiO2 09/25/19 07:00 98.2 71 18 155/82 (106) 100 Room Air 98.2 09/24/19 23:00 70 16 144/69 (94) 94 Room Air 09/24/19 19:50 Room Air 09/24/19 19:00 98.5 16 184/88 (120) 94 Room Air 98.5 09/24/19 15:00 98.7 80 16 92/64 (73) 94 Room Air 98.7 09/24/19 11:00 97.8 74 18 101/65 (77) 96 Room Air 97.8 Labs Labs Laboratory Tests Test 09/24/19 11:13 09/24/19 17:30 09/24/19 21:44 09/25/19 07:42 Glucose (Fingerstick) 124 mg/dL (70-99) 161 mg/dL (70-99) 134 mg/dL (70-99) 106 mg/dL (70-99) Physical Exam Physical Exam chest- clear abd- soft, PEG site closing IV out excoriations on arms Assessment Assessment Prior PEG site closing- taking PO with assistance- replacement PEG on hold sacral ulcer awaiting decision about need for replacement PEG versus conservative/palliative care Justicifation of Admission Dx: Justifications for Admission: Justification of Admission Dx: Yes DEVANG ARCHIBALD MD Sep 25, 2019 08:30
[2019-09-25] MEDS: SENNOSIDES/DOCUSATE 8.6/50MG TABLET. PO SCH (09:00)
[2019-09-25] MEDS: SERTRALINE 50 MG TABLET. PO SCH (09:00)
[2019-09-25] MEDS: LINAGLIPTIN 5 MG TABLET PO SCH (09:00)
[2019-09-25] MEDS ORDERED: fentaNYL PF VIAL 100 MCG/2 ML VIAL ONE (09:27)
[2019-09-25] MEDS ORDERED: PROPOFOL 10 MG/ML (20ML) VIAL. IV ONE (09:27)
--- NOTE | 2019-09-25 09:39 | NUR ---
SW following. Discussed with RN, pt having MRI with sedation today. Potential hospice referral after results of MRI. SW will continue to follow.
--- NOTE | 2019-09-25 10:46 | PDOC ---
PROGRESS NOTES Date of Service: DATE: 09/25/19 TIME: 10:41 Chief Complaint Chief Complaint Loss of PEG tube History of Present Illness History of Present Illness No complaints today, no reports overnight. Patient to have MRI today to evaluate possible osteomyelitis. Vitals Vitals Vital Signs Date Time Temp Pulse Resp B/P (MAP) Pulse Ox O2 Delivery O2 Flow Rate FiO2 09/25/19 07:00 98.2 71 18 155/82 (106) 100 Room Air 98.2 Physical Exam General: Alert, Cooperative, No acute distress Heart: Regular rate, Normal S1, Normal S2 Abdomen: Soft, No tenderness Extremities: No clubbing, No cyanosis, No edema Skin: No rashes, Other (3.5 x 4.5 x 2 cm open ulceration to sacrum with granulation tissue; able to touch bone) Labs LABS Laboratory Tests Test 09/24/19 11:13 09/24/19 17:30 09/24/19 21:44 09/25/19 07:42 Glucose (Fingerstick) 124 mg/dL (70-99) 161 mg/dL (70-99) 134 mg/dL (70-99) 106 mg/dL (70-99) Review of Systems Review of Systems Unable to obtain due to language barrier Assessment and Plan Assessmemt and Plan (1) Positive PEG tube Acute (2 )Stage IV pressure ulcer Chronic (3 )Sever Malnutrition Acute on Chronic (4) Dementia Chronic Plan: MRI today to evaluate for sacral osteomyelitis. Family has expressed that they will likely pursue hospice if patient does not fact have osteomyelitis. Comment Review of Relevant I have reviewed the following items pawan (where applicable) has been applied. Labs Laboratory Tests Test 09/23/19 17:39 09/23/19 21:22 09/24/19 07:35 09/24/19 11:13 Glucose (Fingerstick) 176 mg/dL (70-99) 149 mg/dL (70-99) 117 mg/dL (70-99) 124 mg/dL (70-99) Test 09/24/19 17:30 09/24/19 21:44 09/25/19 07:42 Glucose (Fingerstick) 161 mg/dL (70-99) 134 mg/dL (70-99) 106 mg/dL (70-99) Laboratory Tests Test 09/24/19 11:13 09/24/19 17:30 09/24/19 21:44 09/25/19 07:42 Glucose (Fingerstick) 124 mg/dL (70-99) 161 mg/dL (70-99) 134 mg/dL (70-99) 106 mg/dL (70-99) Microbiology 09/21/19 Urine Culture - Final, Complete Medications Current Medications Acetaminophen (Tylenol) 650 mg 1X ONCE PO ; Start 09/21/19 at 03:30; Stop 09/21/19 at 03:31; Status DC Sodium Chloride 1,000 ml @ 75 mls/hr [id number] IV Last administered on 09/21/19at 02:50; Start 09/21/19 at 02:50; Stop 09/21/19 at 09:21; Status DC Acetaminophen (Tylenol) 650 mg PRN Q4HRS PRN PO FEVER > 100.3'F; Start 09/21/19 at 03:00; Stop 09/22/19 at 02:59; Status DC Sodium Chloride 1,000 ml @ 50 mls/hr Q20H IV ; Start 09/21/19 at 08:00; Stop 09/21/19 at 09:21; Status DC Insulin Human Lispro (HumaLOG) 0-5 UNITS TIDWMEALS SQ Last administered on 09/24/19at 17:35; Start 09/21/19 at 08:00 Dextrose (Dextrose 50%-Water Syringe) 12.5 gm PRN Q15MIN PRN IV SEE COMMENTS; Start 09/21/19 at 06:45 Acetaminophen (Tylenol Supp) 325 mg PRN Q6HRS PRN [place] MILD PAIN / TEMP > 100.3'F; Start 09/21/19 at 06:45 Ondansetron HCl (Zofran) 4 mg PRN Q6HRS PRN IVP NAUSEA/VOMITING 1ST CHOICE; Start 09/21/19 at 06:45 Potassium Chloride/Dextrose/ Sod Cl 1,000 ml @ 100 mls/hr Q10H IV Last administered on 09/22/19at 03:10; Start 09/21/19 at 09:30 Potassium Chloride (Klor-Con) 20 meq 1X ONCE PO ; Start 09/21/19 at 09:30; Stop 09/21/19 at 09:31; Status DC Acetaminophen (Tylenol) 650 mg PRN Q4HRS PRN PO PAIN; Start 09/21/19 at 09:30 Atorvastatin Calcium (Lipitor) 20 mg HS PO Last administered on 09/24/19 21:40; Start 09/21/19 at 21:00 Ketoconazole (Nizoral 2% Topical) 1 timmy BID TP Last administered on 09/24/19 21:40; Start 09/21/19 at 21:00 Latanoprost (Xalatan) 1 drop QHS OU Last administered on 09/24/19at 21:40; Start 09/21/19 at 21:00 Senna/Docusate Sodium (Senna Plus) 1 tab DAILY PO Last administered on 09/23/19 08:09; Start 09/22/19 at 09:00 Sertraline HCl (Zoloft) 50 mg DAILY PO Last administered on 09/23/19 08:09; Start 09/22/19 at 09:00 Linagliptin (Tradjenta) 5 mg DAILY PO Last administered on 09/23/19 08:09; Start 09/21/19 at 10:00 Non-Formulary Medication (Melatonin ) 1 tab QHS PO ; Start 09/21/19 at 21:00; Status UNV Lorazepam (Ativan Inj) 1 mg 1X ONCE IVP Last administered on 09/21/19at 15:31; Start 09/21/19 at 15:00; Stop 09/21/19 at 15:01; Status DC Morphine Sulfate (Morphine Sulfate) 2 mg PRN Q2HR PRN IV PAIN Last administered on 09/23/19 08:18; Start 09/21/19 at 15:00 Lorazepam (Ativan Inj) 2 mg 1X ONCE IVP Last administered on 09/22/19at 09:28; Start 09/22/19 at 09:00; Stop 09/22/19 at 09:01; Status DC Lorazepam (Ativan Inj) 2 mg PRN DAILY PRN IVP ANXIETY / AGITATION Last administered on 09/23/19at 13:30; Start 09/22/19 at 18:45 Diphenhydramine HCl (Benadryl) 25 mg PRN Q6HRS PRN PO ITCHING Last administered on 09/24/19 08:31; Start 09/23/19 at 08:45 Potassium Chloride (Klor-Con) 10 meq 1X ONCE PO ; Start 09/23/19 at 16:45; Stop 09/23/19 at 16:46; Status DC Fentanyl Citrate (Fentanyl 2ml Vial) 100 mcg STK-MED ONCE .ROUTE ; Start 09/25/19 at 09:27; Stop 09/25/19 at 09:27; Status DC Propofol (Diprivan) 200 mg STK-MED ONCE IV ; Start 09/25/19 at 09:27; Stop 09/25/19 at 09:27; Status DC Active Scripts Active Reported Sertraline Hcl 50 Mg Tablet 50 Mg PO DAILY Senna-Docusate Sodium Tablet (Sennosides/Docusate Sodium) 1 Each Tablet 1 Tab PO DAILY 20 Days Oxycodone Hcl 5 Mg Capsule 5 Mg PO PRN Q12HR PRN Melatonin 3 Mg Tablet 1 Tab PO QHS Latanoprost 2.5 Ml Drops 1 Drop EACHEYE QHS Lantus Solostar (Insulin Glargine,Hum.rec.anlog) 100 Unit/1 Ml Insuln.pen 5 Unit SQ QHS Ketoconazole 15 Gm Cream..g. 1 Timmy TP BID Humalog (Insulin Lispro) 100 Unit/1 Ml Vial 100 Unit SQ PRN AFTMEALHC PRN Doxycycline Hyclate 100 Mg Capsule 1 Cap PO BID Diclofenac Sodium 100 Gm Gel..gram. 100 Gm TP BID D3-50 (Cholecalciferol (Vitamin D3)) 50,000 Unit Capsule 1 Cap PO WEEKLY 28 Days Atorvastatin Calcium 20 Mg Tablet 20 Mg PO HS Aspirin 81 Mg Tab.chew 2 Tab PO DAILY Aricept (Donepezil Hcl) 5 Mg Tablet 1 Tab PO BID 30 Days Nesina (Alogliptin Benzoate) 25 Mg Tablet 1 Tab PO DAILY 30 Days Tylenol (Acetaminophen) 325 Mg Tablet 650 Mg PO PRN Q4HRS PRN Vitals/I & O Vital Sign - Last 24 Hours 09/24/19 09/24/19 09/24/19 09/24/19 11:00 15:00 19:00 19:50 Temp 97.8 98.7 98.5 97.8 98.7 98.5 Pulse 74 80 Resp 18 16 16 B/P (MAP) 101/65 (77) 92/64 (73) 184/88 (120) Pulse Ox 96 94 94 O2 Delivery Room Air Room Air Room Air Room Air 09/24/19 09/25/19 23:00 07:00 Temp 98.2 98.2 Pulse 70 71 Resp 16 18 B/P (MAP) 144/69 (94) 155/82 (106) Pulse Ox 94 100 O2 Delivery Room Air Room Air Intake and Output 09/24/19 09/24/19 09/25/19 15:00 23:00 07:00 Intake Total 270 ml 60 ml Balance 270 ml 60 ml Nutrition Consultation Dietary Evaluation: Recommendations by RD: Dietary education by RD, Increase Calorie Intake, Protein supplementation Comments: glucerna tid, rec mvi and vit c per wound protocal Expected Outcomes/Goals: PEG replacement vs hospice Malnutrition Findings: Body Fat Depletion (Non Severe: Mild Depletion Weight Status: Underweight Justicifation of Admission Dx: Justifications for Admission: Justification of Admission Dx: Yes BOYD BRYSON MD Sep 25, 2019 10:46
[2019-09-25] MEDS: KETOCONAZOLE 2% TOPICAL CREAM 15GM TUBE. TP SCH ×2 (12:55→21:00)
--- NOTE | 2019-09-25 13:00 | NUR ---
Attempted to assess patient again. DENNIS Pedersen had to turn patient because the patient hit my arm and kicked towards me and told me to stop. Patient allowed Nuvia COLLINS to turn her, so I observed sacrum wound. Patient has a foam pad on right arm for protection. MRI - placed another IV left hand with coban. Patient was pulling at her medina and IV site.
[2019-09-25 15:00] VITALS: BP 175/90
--- NOTE | 2019-09-25 15:57 | RAD ---
Examination: MRI sacrum without contrast HISTORY: History of sacral ulcer COMPARISON: None available TECHNIQUE: Multiplanar, multisequence MR imaging of the sacrum was performed without contrast FINDINGS: There is a sacral soft tissue ulcer (about 5 cm in CC dimension) identified in the midline about the gluteal cleft extending superiorly to involve the inferior aspect of the left and midportion of the sacrum inferiorly with low T1 signal and corresponding high T2 signal likely osteomyelitis of the lower portion of the cecum. Examination is very limited due to significant motion artifact Fatty atrophic changes of the gluteal muscles identified Mild increased T2 signal/edema identified about the ulcer. Impression: 1. Findings suggestive of osteomyelitis of the inferior sacrum with sacral soft tissue ulcer extending inferiorly from the sacrum to the gluteal cleft. Electronically signed by: Allan Brink MD (09/25/2019 3:54 PM) [id number]
[2019-09-25 19:45] VITALS: BP 134/77
[2019-09-25] MEDS: ATORVASTATIN CALCIUM 20 MG TABLET PO SCH (21:38)
[2019-09-25] MEDS: LATANOPROST 0.005% OPHTH SOLUTION 2.5ML BOTTLE. OU SCH (21:39)
[2019-09-25 23:27] VITALS: BP 137/89
[2019-09-26 07:00] VITALS: BP 108/57
[2019-09-26] MEDS: INSULIN LISPRO 300 UNITS/3 ML VIAL. SQ SCH ×3 (07:53→17:00)
[2019-09-26] MEDS: POTASSIUM CL 20MEQ D5-0.45NACL 1,000 ML IV SCH ×2 (08:01→19:30)
[2019-09-26] MEDS: LINAGLIPTIN 5 MG TABLET PO SCH (08:02)
[2019-09-26] MEDS: SERTRALINE 50 MG TABLET. PO SCH (08:02)
[2019-09-26] MEDS: SENNOSIDES/DOCUSATE 8.6/50MG TABLET. PO SCH (08:02)
[2019-09-26] MEDS: KETOCONAZOLE 2% TOPICAL CREAM 15GM TUBE. TP SCH ×2 (08:02→21:34)
--- NOTE | 2019-09-26 09:30 | NUR ---
[facility] following. Discussed with RN, Dr. Melchor speaking to family about results of MRI. Likely plan to return to [facility] with hospice. FORD will continue to follow. Addendum: 09/26/19 at 1215 by TERA YOUNGBLOOD Family wanting referral to [facility]. [facility]D spoke with Komal at [facility] (ph: [phone], fax: [phone]) - faxed referral. FORD spoke with pt's son and daughter in law. If pt not accepted at [facility], they would like pt transferred to a snf closer to [place]. FORD advised pt is ready for discharge and this may not be possible at such short notice. FORD explained [facility] can also work on transferring pt to another snf after discharge from [facility]. RN notified. Addendum: 09/26/19 at 1406 by TERA YOUNGBLOOD [facility]D contacted [facility] to determine progress, SW notified an RN from [facility] has scheduled to call [facility] RN at 1600. SW requested an earlier time, there are no other times available. FORD queried whether the referral is reviewed prior to RN to RN in case pt is not appropriate for [facility], intake at [facility] advised it is reviewed about 30 minutes prior to the RN to RN. RN notified.
--- NOTE | 2019-09-26 10:32 | PDOC ---
Date of Service: DATE: 09/26/19 TIME: 10:29 Objective: Objective: Reviewed chart and d/w nurse - hospitalist to discuss MRI results w/ family - possible Hospice. Reviewed chart - hitting staff, not cooperative, etc. Vital Signs: Vital Signs Date Time Temp Pulse Resp B/P (MAP) Pulse Ox O2 Delivery O2 Flow Rate FiO2 09/26/19 08:00 Room Air 09/26/19 07:00 96.9 70 16 108/57 (74) 96.9 09/25/19 23:27 93 09/25/19 10:56 2 Labs: Laboratory Tests Test 09/25/19 11:23 09/25/19 16:25 09/25/19 20:26 09/26/19 07:29 Glucose (Fingerstick) 86 mg/dL 73 mg/dL 110 mg/dL 138 mg/dL Imaging: Pelv MRI Impression: 1. Findings suggestive of osteomyelitis of the inferior sacrum with sacral soft tissue ulcer extending inferiorly from the sacrum to the gluteal cleft. PE: GEN: NAD LUNGS: room air HEART: RRR ABD: soft NEURO/PSYCH: confused A/P: Osteomyelitis PEG displacement -- Await family's decision. Justicifation of Admission Dx: Justifications for Admission: Justification of Admission Dx: Yes ARTUR CALDERON Sep 26, 2019 10:32
--- NOTE | 2019-09-26 11:30 | PDOC ---
PROGRESS NOTES Date of Service: DATE: 09/26/19 TIME: 11:26 Chief Complaint Chief Complaint Loss of PEG tube History of Present Illness History of Present Illness Per nursing staff, some pain and agitation after dressing change today. Discussed with son and [id number], who are agreeable to hospice care. They state they would [facility], as this is closer to where they currently live. Vitals Vitals Vital Signs Date Time Temp Pulse Resp B/P (MAP) Pulse Ox O2 Delivery O2 Flow Rate FiO2 09/26/19 08:00 Room Air 09/26/19 07:00 96.9 70 16 108/57 (74) 96.9 09/25/19 23:27 93 09/25/19 10:56 2 Physical Exam General: Alert, Cooperative, mild distress Heart: Regular rate, Normal S1, Normal S2 Lungs: Clear Abdomen: Soft, No tenderness Extremities: No clubbing, No cyanosis, No edema Skin: No rashes, Other (3.5 x 4.5 x 2 cm open ulceration to sacrum with granulation tissue; able to touch bone) Labs LABS Laboratory Tests Test 09/25/19 16:25 09/25/19 20:26 09/26/19 07:29 Glucose (Fingerstick) 73 mg/dL (70-99) 110 mg/dL (70-99) 138 mg/dL (70-99) Review of Systems Review of Systems Unable to obtain due to language barrier Assessment and Plan Assessmemt and Plan (1) Positive PEG tube Acute (2 )Stage IV pressure ulcer Chronic (3 )Sever Malnutrition Acute on Chronic (4) Dementia Chronic Plan: Family agreeable to Hospice Care. Will work on appropriate placement. Comment Review of Relevant I have reviewed the following items pawan (where applicable) has been applied. Labs Laboratory Tests Test 09/24/19 17:30 09/24/19 21:44 09/25/19 07:42 09/25/19 11:23 Glucose (Fingerstick) 161 mg/dL (70-99) 134 mg/dL (70-99) 106 mg/dL (70-99) 86 mg/dL (70-99) Test 09/25/19 16:25 09/25/19 20:26 09/26/19 07:29 Glucose (Fingerstick) 73 mg/dL (70-99) 110 mg/dL (70-99) 138 mg/dL (70-99) Laboratory Tests Test 09/25/19 16:25 09/25/19 20:26 09/26/19 07:29 Glucose (Fingerstick) 73 mg/dL (70-99) 110 mg/dL (70-99) 138 mg/dL (70-99) Microbiology 09/21/19 Urine Culture - Final, Complete Medications Current Medications Acetaminophen (Tylenol) 650 mg 1X ONCE PO ; Start 09/21/19 at 03:30; Stop 09/21/19 at 03:31; Status DC Sodium Chloride 1,000 ml @ 75 mls/hr [id number] IV Last administered on 09/21/19at 02:50; Start 09/21/19 at 02:50; Stop 09/21/19 at 09:21; Status DC Acetaminophen (Tylenol) 650 mg PRN Q4HRS PRN PO FEVER > 100.3'F; Start 09/21/19 at 03:00; Stop 09/22/19 at 02:59; Status DC Sodium Chloride 1,000 ml @ 50 mls/hr Q20H IV ; Start 09/21/19 at 08:00; Stop 09/21/19 at 09:21; Status DC Insulin Human Lispro (HumaLOG) 0-5 UNITS TIDWMEALS SQ Last administered on 09/24/19at 17:35; Start 09/21/19 at 08:00 Dextrose (Dextrose 50%-Water Syringe) 12.5 gm PRN Q15MIN PRN IV SEE COMMENTS; Start 09/21/19 at 06:45 Acetaminophen (Tylenol Supp) 325 mg PRN Q6HRS PRN TX MILD PAIN / TEMP > 100.3'F; Start 09/21/19 at 06:45 Ondansetron HCl (Zofran) 4 mg PRN Q6HRS PRN IVP NAUSEA/VOMITING 1ST CHOICE; Start 09/21/19 at 06:45 Potassium Chloride/Dextrose/ Sod Cl 1,000 ml @ 100 mls/hr Q10H IV Last administered on 09/26/19at 08:01; Start 09/21/19 at 09:30 Potassium Chloride (Klor-Con) 20 meq 1X ONCE PO ; Start 09/21/19 at 09:30; Stop 09/21/19 at 09:31; Status DC Acetaminophen (Tylenol) 650 mg PRN Q4HRS PRN PO PAIN; Start 09/21/19 at 09:30 Atorvastatin Calcium (Lipitor) 20 mg HS PO Last administered on 09/25/19 21: 38; Start 09/21/19 at 21:00 Ketoconazole (Nizoral 2% Topical) 1 timmy BID TP Last administered on 09/26/19 08:02; Start 09/21/19 at 21:00 Latanoprost (Xalatan) 1 drop QHS OU Last administered on 09/25/19 21:39; Start 09/21/19 at 21:00 Senna/Docusate Sodium (Senna Plus) 1 tab DAILY PO Last administered on 09/26/19 08:02; Start 09/22/19 at 09:00 Sertraline HCl (Zoloft) 50 mg DAILY PO Last administered on 09/26/19at 08:02; Start 09/22/19 at 09:00 Linagliptin (Tradjenta) 5 mg DAILY PO Last administered on 09/26/19 08:02; Start 09/21/19 at 10:00 Non-Formulary Medication (Melatonin ) 1 tab QHS PO ; Start 09/21/19 at 21:00; Status UNV Lorazepam (Ativan Inj) 1 mg 1X ONCE IVP Last administered on 09/21/19 15:31; Start 09/21/19 at 15:00; Stop 09/21/19 at 15:01; Status DC Morphine Sulfate (Morphine Sulfate) 2 mg PRN Q2HR PRN IV PAIN Last administered on 09/23/19 08:18; Start 09/21/19 at 15:00 Lorazepam (Ativan Inj) 2 mg 1X ONCE IVP Last administered on 09/22/19 09:28; Start 09/22/19 at 09:00; Stop 09/22/19 at 09:01; Status DC Lorazepam (Ativan Inj) 2 mg PRN DAILY PRN IVP ANXIETY / AGITATION Last administered on 09/26/19at 08:59; Start 09/22/19 at 18:45 Diphenhydramine HCl (Benadryl) 25 mg PRN Q6HRS PRN PO ITCHING Last administered on 09/24/19 08:31; Start 09/23/19 at 08:45 Potassium Chloride (Klor-Con) 10 meq 1X ONCE PO ; Start 09/23/19 at 16:45; Stop 09/23/19 at 16:46; Status DC Fentanyl Citrate (Fentanyl 2ml Vial) 100 mcg STK-MED ONCE .ROUTE ; Start 09/25/19 at 09:27; Stop 09/25/19 at 09:27; Status DC Propofol (Diprivan) 200 mg STK-MED ONCE IV ; Start 09/25/19 at 09:27; Stop 09/25/19 at 09:27; Status DC Haloperidol Lactate (Haldol Inj) 5 mg PRN Q6HRS PRN IVP AGITATION; Start 09/26/19 at 09:00 Active Scripts Active Reported Sertraline Hcl 50 Mg Tablet 50 Mg PO DAILY Senna-Docusate Sodium Tablet (Sennosides/Docusate Sodium) 1 Each Tablet 1 Tab PO DAILY 20 Days Oxycodone Hcl 5 Mg Capsule 5 Mg PO PRN Q12HR PRN Melatonin 3 Mg Tablet 1 Tab PO QHS Latanoprost 2.5 Ml Drops 1 Drop EACHEYE QHS Lantus Solostar (Insulin Glargine,Hum.rec.anlog) 100 Unit/1 Ml Insuln.pen 5 Unit SQ QHS Ketoconazole 15 Gm Cream..g. 1 Timmy TP BID Humalog (Insulin Lispro) 100 Unit/1 Ml Vial 100 Unit SQ PRN AFTMEALHC PRN Doxycycline Hyclate 100 Mg Capsule 1 Cap PO BID Diclofenac Sodium 100 Gm Gel..gram. 100 Gm TP BID D3-50 (Cholecalciferol (Vitamin D3)) 50,000 Unit Capsule 1 Cap PO WEEKLY 28 Days Atorvastatin Calcium 20 Mg Tablet 20 Mg PO HS Aspirin 81 Mg Tab.chew 2 Tab PO DAILY Aricept (Donepezil Hcl) 5 Mg Tablet 1 Tab PO BID 30 Days Nesina (Alogliptin Benzoate) 25 Mg Tablet 1 Tab PO DAILY 30 Days Tylenol (Acetaminophen) 325 Mg Tablet 650 Mg PO PRN Q4HRS PRN Vitals/I & O Vital Sign - Last 24 Hours 09/25/19 09/25/19 09/25/19 09/25/19 15:00 19:45 20:00 23:27 Temp 98.4 98.6 98.4 98.4 98.6 98.4 Pulse 86 87 91 Resp 18 18 16 B/P (MAP) 175/90 (118) 134/77 (96) 137/89 (105) Pulse Ox 99 97 93 O2 Delivery Room Air Room Air Room Air Room Air 09/26/19 09/26/19 07:00 08:00 Temp 96.9 96.9 Pulse 70 Resp 16 B/P (MAP) 108/57 (74) O2 Delivery Room Air Room Air Intake and Output 09/25/19 09/25/19 09/26/19 15:00 23:00 07:00 Intake Total 0 ml 70 ml Output Total 200 ml 300 ml 400 ml Balance -200 ml -230 ml -400 ml Nutrition Consultation Dietary Evaluation: Recommendations by RD: Dietary education by RD, Increase Calorie Intake, Protein supplementation Comments: glucerna tid, rec mvi and vit c per wound protocal Expected Outcomes/Goals: PEG replacement vs hospice Malnutrition Findings: Body Fat Depletion (Non Severe: Mild Depletion Weight Status: Underweight Justicifation of Admission Dx: Justifications for Admission: Justification of Admission Dx: Yes BOYD BRYSON MD Sep 26, 2019 11:30
[2019-09-26] MEDS: HALOPERIDOL LACTATE 5 MG/ML VIAL. IVP PRN (13:17)
--- NOTE | 2019-09-26 15:17 | NUR ---
Patient is pending hospice admission, and further wound care will be held until Sunday09/29/2019
[2019-09-26 19:15] VITALS: BP 151/76
[2019-09-26] MEDS: ATORVASTATIN CALCIUM 20 MG TABLET PO SCH (21:33)
[2019-09-26] MEDS: LATANOPROST 0.005% OPHTH SOLUTION 2.5ML BOTTLE. OU SCH (21:34)
[2019-09-26 23:00] VITALS: BP 129/57
[2019-09-27 03:00] VITALS: BP 117/57
[2019-09-27] MEDS: POTASSIUM CL 20MEQ D5-0.45NACL 1,000 ML IV SCH ×2 (05:30→12:00)
[2019-09-27 07:00] VITALS: BP 116/74
[2019-09-27] MEDS: HALOPERIDOL LACTATE 5 MG/ML VIAL. IVP PRN ×2 (07:54→13:52)
[2019-09-27] MEDS: INSULIN LISPRO 300 UNITS/3 ML VIAL. SQ SCH ×3 (08:00→17:00)
[2019-09-27] MEDS: SENNOSIDES/DOCUSATE 8.6/50MG TABLET. PO SCH (08:28)
[2019-09-27] MEDS: LINAGLIPTIN 5 MG TABLET PO SCH (08:29)
[2019-09-27] MEDS: SERTRALINE 50 MG TABLET. PO SCH (08:29)
[2019-09-27] MEDS: KETOCONAZOLE 2% TOPICAL CREAM 15GM TUBE. TP SCH ×2 (08:29→21:16)
[2019-09-27 11:00] VITALS: BP 115/70
[2019-09-27 15:00] VITALS: BP 122/83
--- NOTE | 2019-09-27 16:27 | PDOC ---
GENERAL General: Patient examined chart reviewed today is hospital day 7 for this patient with a dvanced dementia who resides at [facility] admitted after her PEG tube fell out inadvertently. 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 Conversations with family have resulted in a plan to discharge back to [facility] with [facility] consulting. They were hoping to bring her to hospice house but not sure that that will happen. I will start rounding earlier tomorrow and try to catch social work to evaluate if we can indeed send her back to [facility] with [facility] tomorrow. Her PEG tube of course was not replaced given the decision for hospice care. She appears comfortable currently. She appears to be [place]ar[place]uan-speaking only. Problems: (1) PEG (percutaneous endoscopic gastrostomy) adjustment/replacement/removal (2) Stage 4 pressure ulcer (3) Dementia (4) Severe malnutrition VITAL SIGNS Vital Signs/I&O: Vital Signs Date Time Temp Pulse Resp B/P (MAP) Pulse Ox O2 Delivery O2 Flow Rate FiO2 09/27/19 15:00 98.2 91 16 122/83 (96) 97 Room Air 98.2 I & O 09/26/19 09/26/19 09/27/19 15:00 23:00 07:00 Output Total 850 ml 50 ml Balance -850 ml -50 ml In general the patient is very frail laying in bed awake speaking in [place]arag[place] she seems comfortable Heart S1-S2 normal regular rate and rhythm no murmurs or gallops are noted Chest is clear to auscultation anteriorly Abdomen soft nontender nondistended no masses organomegaly noted Extremity exam is notable for 2+ bipedal edema. Her sacral wound is not examined ALLERGIES Allergies: Allergies Coded Allergies Type Severity Reaction Last Updated Verified hydrocodone Allergy Intermediate 09/21/19 Yes metoprolol Allergy Intermediate 09/21/19 Yes tramadol Allergy Intermediate 09/21/19 Yes MEDS Medications: Current Medications Medications (Trade) Dose Ordered Sig/Agustin Start Time Stop Time Status Last Admin Dose Admin Acetaminophen (Tylenol Supp) 325 mg PRN Q6HRS PRN 09/21/19 06:45 Acetaminophen (Tylenol) 650 mg PRN Q4HRS PRN 09/21/19 09:30 Atorvastatin Calcium (Lipitor) 20 mg HS 09/21/19 21:00 09/26/19 21:33 Dextrose (Dextrose 50%-Water Syringe) 12.5 gm PRN Q15MIN PRN 09/21/19 06:45 Diphenhydramine HCl (Benadryl) 25 mg PRN Q6HRS PRN 09/23/19 08:45 09/24/19 08:31 Fentanyl Citrate (Fentanyl 2ml Vial) 100 mcg STK-MED ONCE 09/25/19 09:27 09/25/19 09:27 DC Haloperidol Lactate (Haldol Inj) 5 mg PRN Q6HRS PRN 09/26/19 09:00 09/27/19 13:52 Insulin Human Lispro (HumaLOG) 0-5 UNITS TIDWMEALS 09/21/19 08:00 09/24/19 17:35 Ketoconazole (Nizoral 2% Topical) 1 radha BID 09/21/19 21:00 09/26/19 21:34 Latanoprost (Xalatan) 1 drop QHS 09/21/19 21:00 09/26/19 21:34 Linagliptin (Tradjenta) 5 mg DAILY 09/21/19 10:00 09/26/19 08:02 Lorazepam (Ativan Inj) 2 mg PRN DAILY PRN 09/22/19 18:45 09/26/19 08:59 Morphine Sulfate (Morphine Sulfate) 2 mg PRN Q2HR PRN 09/21/19 15:00 09/23/19 08:18 Non-Formulary Medication (Melatonin ) 1 tab QHS 09/21/19 21:00 UNV Ondansetron HCl (Zofran) 4 mg PRN Q6HRS PRN 09/21/19 06:45 Potassium Chloride/Dextrose/ Sod Cl 1,000 ml @ 100 mls/hr Q10H 09/21/19 09:30 09/26/19 08:01 Potassium Chloride (Klor-Con) 10 meq 1X ONCE 09/23/19 16:45 09/23/19 16:46 DC Propofol (Diprivan) 200 mg STK-MED ONCE 09/25/19 09:27 09/25/19 09:27 DC Senna/Docusate Sodium (Senna Plus) 1 tab DAILY 09/22/19 09:00 09/26/19 08:02 Sertraline HCl (Zoloft) 50 mg DAILY 09/22/19 09:00 09/26/19 08:02 Sodium Chloride 1,000 ml @ 50 mls/hr Q20H 09/21/19 08:00 09/21/19 09:21 DC LAB Lab: Laboratory Tests Test 09/26/19 17:17 09/26/19 20:34 09/27/19 07:39 Glucose (Fingerstick) 201 mg/dL (70-99) H 183 mg/dL (70-99) H 126 mg/dL (70-99) H ASSESSMENT & PLAN A&P Plan as noted above This note was created using [employer] and may have omissions and/or errors due to 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 Justicifation of Admission Dx: Justifications for Admission: Justification of Admission Dx: Yes Nutrition Consultation Dietary Evaluation: Recommendations by RD: Dietary education by RD, Increase Calorie Intake, Protein supplementation Comments: glucerna tid, rec mvi and vit c per wound protocal Expected Outcomes/Goals: PEG replacement vs hospice Malnutrition Findings: Body Fat Depletion (Non Severe: Mild Depletion Weight Status: Underweight NABIL MAK MD Sep 27, 2019 16:27
[2019-09-27 19:00] VITALS: BP 120/69
[2019-09-27] MEDS: ATORVASTATIN CALCIUM 20 MG TABLET PO SCH (21:16)
[2019-09-27] MEDS: LATANOPROST 0.005% OPHTH SOLUTION 2.5ML BOTTLE. OU SCH (21:16)
[2019-09-27 23:00] VITALS: BP 149/71
[2019-09-28] MEDS: POTASSIUM CL 20MEQ D5-0.45NACL 1,000 ML IV SCH ×2 (01:30→07:25)
[2019-09-28 03:00] VITALS: BP 129/70
[2019-09-28] MEDS: INSULIN LISPRO 300 UNITS/3 ML VIAL. SQ SCH ×2 (08:00→12:00)
[2019-09-28] MEDS: LINAGLIPTIN 5 MG TABLET PO SCH (08:17)
[2019-09-28] MEDS: SENNOSIDES/DOCUSATE 8.6/50MG TABLET. PO SCH (08:17)
[2019-09-28] MEDS: KETOCONAZOLE 2% TOPICAL CREAM 15GM TUBE. TP SCH (08:18)
[2019-09-28] MEDS: SERTRALINE 50 MG TABLET. PO SCH (08:18)
[2019-09-28] MEDS: HALOPERIDOL LACTATE 5 MG/ML VIAL. IVP PRN (09:46)
--- NOTE | 2019-09-28 10:26 | PDOC ---
GENERAL General: Discharge summary [id number] VITAL SIGNS Vital Signs/I&O: Vital Signs Date Time Temp Pulse Resp B/P (MAP) Pulse Ox O2 Delivery O2 Flow Rate FiO2 09/28/19 03:00 97.9 73 18 129/70 (89) 94 Room Air 97.9 I & O 09/27/19 09/27/19 09/28/19 15:00 23:00 07:00 Intake Total 720 ml 540 ml 100 ml Output Total 100 ml Balance 720 ml 540 ml 0 ml ALLERGIES Allergies: Allergies Coded Allergies Type Severity Reaction Last Updated Verified hydrocodone Allergy Intermediate 09/21/19 Yes metoprolol Allergy Intermediate 09/21/19 Yes tramadol Allergy Intermediate 09/21/19 Yes LAB Lab: Laboratory Tests Test 09/27/19 17:08 09/27/19 20:29 Glucose (Fingerstick) 190 mg/dL (70-99) H 182 mg/dL (70-99) H Justicifation of Admission Dx: Justifications for Admission: Justification of Admission Dx: Yes Nutrition Consultation Dietary Evaluation: Recommendations by RD: Dietary education by RD, Increase Calorie Intake, Protein supplementation Comments: glucerna tid, rec mvi and vit c per wound protocal Expected Outcomes/Goals: PEG replacement vs hospice Malnutrition Findings: Body Fat Depletion (Non Severe: Mild Depletion Weight Status: Underweight NABIL MAK MD Sep 28, 2019 10:26
[2019-09-28 11:00] VITALS: BP 112/72
--- NOTE | 2019-09-28 11:30 | DS ---
DATE OF DISCHARGE: 09/28/2019 HOSPITAL COURSE: This patient is an 83-year-old woman with advanced dementia, who resides at [facility], admitted 8 days ago after her PEG tube fell out inadvertently there at the [facility] facility. On evaluation here, she was found to have a deep, stage 4 decubitus ulcer with osteomyelitis. Extensive discussions occurred among the primary hospitalist team over the last week as well as with Gastroenterology, Nutrition, the patient's family, and in accordance with her wishes, she will not have that PEG tube replaced or submit to more treatment for her advanced decubitus ulcer and osteomyelitis. The plan is for discharge to [facility] and there is a bed available today. On my assessment this morning, the patient is lying in bed without any clothes on. Nursing tells me that she prefers to be completely naked. She appears comfortable. It sounds like she speaks mostly Bolivian. She is not in any acute distress. PHYSICAL EXAMINATION: VITAL SIGNS: Are stable this morning. The patient has been afebrile. Blood pressure has been between 130s-140s/70s. Heart rate is in the 70s. She is breathing comfortably and saturating normally on room air. GENERAL: She is a very pleasant 83-year-old woman, who appears stated age, in no acute distress. CHEST: Clear to auscultation anteriorly. HEART: S1, S2 normal. Regular rate and rhythm. No murmurs or gallops are noted. ABDOMEN: Soft, nontender, nondistended. No masses or organomegaly noted. EXTREMITIES: Unchanged from prior. Greater than 30 minutes were spent on coordinating this discharge with greater than 50% in counseling and coordination of care, most of which in discussion with the patient and nursing. FINAL DIAGNOSES: 1. Advanced dementia. 2. Stage 4 sacral decubitus ulcer with osteomyelitis. 3. Percutaneous endoscopic gastrostomy tube feeding dependent with dislodging of the percutaneous endoscopic gastrostomy tube that will not be replaced. Plan as noted above. NABIL MAK MD DR: BRIAN/dg JOB#: [id number] / [id number]
== END 2019-09-28 14:11 | disposition hospice, inpatient (51) | DRG 919 ==
LOC: ER 00:20 → 4 NORTH 03:25 → OBSVTOIN 09-22 16:24 → 4 NORTH 09-23 15:19
PROVIDERS: ADMIT Family Medicine; ATTEND Family Medicine
DX: T85.528A Displacement of other gastrointestinal prosthetic devices, implants and grafts, initial encounter (principal); L89.154 Pressure ulcer of sacral region, stage 4; E43 Unspecified severe protein-calorie malnutrition; Z43.1 Encounter for attention to gastrostomy; M46.28 Osteomyelitis of vertebra, sacral and sacrococcygeal region; M86.8X8 Other osteomyelitis, other site; E11.69 Type 2 diabetes mellitus with other specified complication; E78.5 Hyperlipidemia, unspecified; E87.6 Hypokalemia; F03.90 Unspecified dementia, unspecified severity, without behavioral disturbance, psychotic disturbance, mood disturbance, and anxiety; L29.9 Pruritus, unspecified; I10 Essential (primary) hypertension; Z20.828 Contact with and (suspected) exposure to other viral communicable diseases; Z51.5 Encounter for palliative care; F41.9 Anxiety disorder, unspecified; Z79.4 Long term (current) use of insulin
CPT/HCPCS: 36415; 43762; 72195; 80048; 80053; 81001; 82962; 85025; 87086; 87426; G0378; G0379; J1630; J1815; J2060; J2270; J2704; J3010; J3480; J7030; 92526-GN; 92610-GN; 99285-25; Q0163; U0003-CS